=== PATIENT | female | born 1930 | race Caucasian/White ===

== ENCOUNTER 2018-07-13 08:58 | Day surgery (SDC) | payer MEDICARE ==
[2018-07-13] VITALS (16 sets, daily range): BP systolic 112–154; BP diastolic 56–66
[~2018-07-13] VITALS: Ht 172.7 cm; Wt 59.0 kg
[~2018-07-13 08:58] MED LIST: CHOL400C8 PO; COU1T PO; COU3T PO; CYCL-394 PO; DILT180C54 PO; FURO40TA4 PO; LANS15CA10 PO; LEVO50TA67 PO; LOSA25TA96 PO; POTA8TAB46 PO; PRAV40TA65 PO
[2018-07-13] MEDS ORDERED: sod bicarbonate 150mEq in D5W 1,150 ML IV ONE (09:20)
[2018-07-13] MEDS ORDERED: diphenhydrAMINE 25mg capsule PO PRN (09:20)
[2018-07-13] MEDS ORDERED: GABA-532 PO (09:31)
[2018-07-13] MEDS ORDERED: HYDR-3972 PO (09:31)
[2018-07-13] MEDS ORDERED: DILT180C10 PO (09:34)
[2018-07-13] MEDS ORDERED: normal saline 1000ml 1,000 ML IV SCH (10:05)
[2018-07-13 10:17] LABS: ALBUMIN 3.9 G/DL (3.4-5.0); ANION GAP 10 (8-16); BLOOD UREA NITROGEN 26 MG/DL (7-18); BUN/CREATININE RATIO 22.2 (6.6-38.0); CALCIUM 9.3 MG/DL (8.5-10.1); CHLORIDE 107 MMOL/L (99-107); CREATININE 1.17 MG/DL (0.40-0.90); GLUCOSE 90 MG/DL (70-104); MAGNESIUM 2.7 MG/DL (1.5-2.4); POTASSIUM 4.4 MMOL/L (3.5-5.1); SODIUM 142 MMOL/L (135-145); TOTAL CARBON DIOXIDE 25.4 MMOL/L (24-32); eGFR 44 ML/MIN
[2018-07-13 10:23] LABS: EOSINOPHILS % (AUTO) 0.4 % (0-6); HEMATOCRIT 28.6 % (35.0-45.0); HEMOGLOBIN 9.3 g/dl (12.0-16.0); LYMPHOCYTES # (AUTO) 0.6 X10'3 (1.1-4.8); LYMPHOCYTES % (AUTO) 27.1 % (21-51); MEAN CORPUSCULAR HEMOGLOBIN 36.5 PG (27.0-31.0); MEAN CORPUSCULAR HGB CONC 32.7 g/dL (33.0-36.5); MEAN CORPUSCULAR VOLUME 111.7 FL (78-98); MEAN PLATELET VOLUME 8.6 FL (7.4-10.4); MONOCYTES # (AUTO) 0.2 X10'3 (0-0.9); MONOCYTES % (AUTO) 8.4 % (2-12); NEUTROPHILS # (AUTO) 1.5 X10'3 (1.8-7.7); NEUTROPHILS % (AUTO) 63.1 % (42-75); PLATELET COUNT 98 X10'3 (140-440); RED BLOOD COUNT 2.56 X10'6 (4.20-5.60); RED CELL DISTRIBUTION WIDTH 17.7 % (11.5-14.5); WHITE BLOOD COUNT 2.3 X10'3 (4.5-11.0)
[2018-07-13 10:24] LABS: INR 1.5 INR; PROTHROMBIN TIME 15.3 SECONDS (9.0-12.0)
[2018-07-13] MEDS ORDERED: fentaNYL/PF 50MCG/1 ML 2ML syringe ONE ×2 (10:57→14:28)
[2018-07-13] MEDS ORDERED: LIDOcaine 1% (10mg/ml)w/preservative injection 20ml MDV ONE ×2 (10:57→14:00)
[2018-07-13] MEDS ORDERED: midazolam 2 mg/2 ml injection ONE ×3 (10:57→14:28)
[2018-07-13] MEDS ORDERED: iohexol 350 MG/ML 50ML vial IV ONE ×2 (10:58→12:06)
[2018-07-13] MEDS ORDERED: iohexol 350MG/ML 100ml bottle IV ONE (10:58)
[2018-07-13 11:13] LABS: ANISOCYTOSIS 1+; PLATELET ESTIMATE DECREASED; TOTAL CELLS COUNTED 100
[2018-07-13] MEDS ORDERED: heparin 1,000unit/ml 10ml vial 10 ML ONE ×2 (11:39→14:01)
[2018-07-13] MEDS ORDERED: adenosine 90 MG/30ml kit =/or below 120kg Cath Lab IV ONE (12:06)
[2018-07-13] MEDS ORDERED: iohexol 350 MG/1 ML 200ml bottle ONE (14:01)
[2018-07-13] MEDS ORDERED: heparin 1,000 UNITS/NS 500ml 500 ML ONE (14:32)
[2018-07-13] MEDS ORDERED: clopidogrel 300mg tablet ONE (14:50)
[2018-07-13] MEDS ORDERED: HYDROcodone/acetaminophen 10/325mg tab PO ONE (16:45)
== END 2018-07-13 18:10 | disposition home or self-care (01) ==
LOC: SSTAY O 08:58
PROVIDERS: ATTEND Internal Medicine Cardiovascular Disease
DX: I25.119 Atherosclerotic heart disease of native coronary artery with unspecified angina pectoris (principal); I27.20 Pulmonary hypertension, unspecified; Z79.899 Other long term (current) drug therapy
CPT/HCPCS: 36415; 80048; 83735; 85025; 85610; 93005; 93460; 93571; 99152; 99153; A6257; C1769; C1874; C1894; C9600; J0153; J1644; J2001; J2250; J3010; J7030; Q0163; Q9967; A4620; C1760

== ENCOUNTER 2018-12-12 04:43 | Inpatient (IN) | payer MEDICARE ==
[~2018-12-12] VITALS: Ht 170.2 cm; Wt 68.4 kg
[2018-12-12] VITALS (19 sets, daily range): BP systolic 119–158; BP diastolic 51–63
[~2018-12-12 04:43] MED LIST changes: -COU3T PO; -CYCL-394 PO; +DILT180C10 PO; -DILT180C54 PO; +GABA-532 PO; +HYDR-3972 PO; -LANS15CA10 PO; -LOSA25TA96 PO
[2018-12-12] MEDS ORDERED: atropine 0.1mg/ml 10ml syringe IV ONE (04:55)
--- NOTE | 2018-12-12 05:00 | NUR ---
DEFIB PATCHES ON PATIENT WELL
[2018-12-12] MEDS ORDERED: atropine 0.1mg/ml 10ml syringe IV STA (05:03)
[2018-12-12] MEDS ORDERED: normal saline 1000ML IV soln IVB ONE (05:05)
[2018-12-12] MEDS ORDERED: atropine 1 MG/1 ML vial IM PRN (05:20)
[2018-12-12] MEDS ORDERED: atropine 1 MG/1 ML vial IV PRN (05:25)
[2018-12-12 05:34] LABS: BASOPHILS % (AUTO) 0.3 % (0-1); EOSINOPHILS % (AUTO) 0.1 % (0-6); HEMATOCRIT 24.5 % (35.0-45.0); HEMOGLOBIN 8.1 g/dl (12.0-16.0); LYMPHOCYTES # (AUTO) 0.3 X10'3 (1.1-4.8); LYMPHOCYTES % (AUTO) 4.1 % (21-51); MEAN CORPUSCULAR HEMOGLOBIN 38.7 PG (27.0-31.0); MEAN CORPUSCULAR HGB CONC 33.2 g/dL (33.0-36.5); MEAN CORPUSCULAR VOLUME 116.4 FL (78-98); MEAN PLATELET VOLUME 8.3 FL (7.4-10.4); MONOCYTES % (AUTO) 0.1 % (2-12); NEUTROPHILS # (AUTO) 5.8 X10'3 (1.8-7.7); NEUTROPHILS % (AUTO) 95.4 % (42-75); RED BLOOD COUNT 2.11 X10'6 (4.20-5.60); RED CELL DISTRIBUTION WIDTH 26.7 % (11.5-14.5); WHITE BLOOD COUNT 6.1 X10'3 (4.5-11.0)
[2018-12-12] MEDS: atropine 0.1mg/ml 10ml syringe IV PRN ×2 (05:38→06:07)
[2018-12-12] MEDS ORDERED: ALLO100T PO (05:42)
--- NOTE | 2018-12-12 05:43 | NUR ---
A total of 2.5 mg of Atropine was given to the patient IV push. patient mantained a HR of low 60s.
--- NOTE | 2018-12-12 05:45 | NUR ---
FAMILY AT THE BEDSIDE
[2018-12-12 06:01] LABS: PLATELET COUNT 39 X10'3 (140-440)
[2018-12-12] MEDS ORDERED: CALC500T PO (06:01)
[2018-12-12] MEDS ORDERED: CYAN-51 PO (06:01)
[2018-12-12] MEDS ORDERED: FERR325T28 PO (06:01)
[2018-12-12] MEDS ORDERED: CLOP75TA35 PO (06:01)
[2018-12-12] MEDS ORDERED: ASPI-611 PO (06:01)
[2018-12-12 06:09] LABS: ANISOCYTOSIS 3+; NUCLEATED RED BLOOD CELLS 2 /100WBC (0-0); PLATELET ESTIMATE DECREASED; TOTAL CELLS COUNTED 100
[2018-12-12 06:10] LABS: HYPOCHROMASIA 1+
[2018-12-12] MEDS: DOPamine 400mg/D5W 250ml 250 ML IV SCH ×2 (06:15→07:32)
[2018-12-12 06:25] LABS: ALANINE AMINOTRANSFERASE 257 U/L (12-78); ALBUMIN 2.9 G/DL (3.4-5.0); ALBUMIN/GLOBULIN RATIO 0.9 (1.1-1.5); ALKALINE PHOSPHATASE 109 IU/L (46-116); ANION GAP 11 (8-16); ASPARTATE AMINO TRANSFERASE 460 U/L (10-37); BILIRUBIN,TOTAL 1.5 MG/DL (0.1-1.0); BLOOD UREA NITROGEN 38 MG/DL (7-18); BUN/CREATININE RATIO 19.2 (6.6-38.0); CALCIUM 8.4 MG/DL (8.5-10.1); CHLORIDE 103 MMOL/L (99-107); CREATININE 1.98 MG/DL (0.40-0.90); GLUCOSE 121 MG/DL (70-104); MAGNESIUM 2.3 MG/DL (1.5-2.4); PARTIAL THROMBOPLASTIN TIME 39 SECONDS (22-32); PHOSPHORUS 4.2 MG/DL (2.3-4.5); SODIUM 135 MMOL/L (135-145); TOTAL PROTEIN 6.3 G/DL (6.4-8.2); eGFR 24 ML/MIN
[2018-12-12 06:28] LABS: POTASSIUM 6.9 MMOL/L (3.5-5.1)
[2018-12-12] MEDS ORDERED: dextrose 50%-water 50ml dispensing syringe IV ONE (06:30)
[2018-12-12] MEDS ORDERED: calcium chloride inj. 1,000 MG in normal saline 100ml IV soln 90 ML IV ONE (06:30)
[2018-12-12] MEDS ORDERED: insulin regular, human 10 units/0.1 ml syringe IV ONE (06:30)
[2018-12-12] MEDS ORDERED: sodium polystyrene sulfonate 15gm/60ml oral suspension PO ONE (06:30)
[2018-12-12] MEDS ORDERED: LIDOcaine/epinephrine TOPICAL 5 ML BTL TOP ONE (07:05)
--- NOTE | 2018-12-12 07:15 | NUR ---
TAMMY DC'Callie PER RENEE ESTRELLA.
[2018-12-12] MEDS ORDERED: docusate sod 100mg capsule PO PRN (07:40)
[2018-12-12] MEDS ORDERED: ondansetron/PF 4mg/2ml inj IV PRN (07:40)
[2018-12-12] MEDS ORDERED: mag hydrox/Alum hydrox/simeth 30ml oral suspension PO PRN (07:40)
[2018-12-12] MEDS ORDERED: etomidate 2mg/ml inj. ONE (08:00)
--- NOTE | 2018-12-12 08:05 | NUR ---
MEDS HELD AT THIS TIME PT NAUSEATED FROM PRIOR MED LACTULOSE ADMINISITERED
--- NOTE | 2018-12-12 08:45 | NUR ---
DR. DENNISON CALLLED AND UPDATED ON PT VSs TRENDS AND THAT PTS HR STARTING TO SHONA BACK DOWN.
--- NOTE | 2018-12-12 08:54 | NUR ---
DR. DENNISON SPEAKING WITH SOCIAL PROBLEMS SPECIALIST REGARDING HIGHER LEVEL OF CARE, RECEIVED VO TO START RESTART DOPAMINE DRIP TILL FURTHER ORDERS FROM SOCIAL PROBLEMS SPECIALIST
--- NOTE | 2018-12-12 09:12 | NUR ---
PT SEEN BY PA ENVIRONMENTAL SERVICES TECHNICIAN RADHA. PT TO HAVE ABG, NOT TO START DOPAMINE AND NOTIFY PA IF HR GOES BELOW 45 BPM AND SUSTAINS.
[2018-12-12] MEDS ORDERED: cefepime 1GM in D5W 50mL 50 ML IV SCH (09:20)
[2018-12-12 09:23] LABS: ALANINE AMINOTRANSFERASE 232 U/L (12-78); ALBUMIN 2.8 G/DL (3.4-5.0); ALBUMIN/GLOBULIN RATIO 0.9 (1.1-1.5); ALKALINE PHOSPHATASE 105 IU/L (46-116); ANION GAP 9 (8-16); ASPARTATE AMINO TRANSFERASE 379 U/L (10-37); BILIRUBIN,TOTAL 0.8 MG/DL (0.1-1.0); BLOOD UREA NITROGEN 39 MG/DL (7-18); BUN/CREATININE RATIO 21.3 (6.6-38.0); CALCIUM 9.3 MG/DL (8.5-10.1); CHLORIDE 105 MMOL/L (99-107); CREATININE 1.83 MG/DL (0.40-0.90); GLUCOSE 140 MG/DL (70-104); POTASSIUM 5.8 MMOL/L (3.5-5.1); SODIUM 135 MMOL/L (135-145); TOTAL CARBON DIOXIDE 21.2 MMOL/L (24-32); eGFR 26 ML/MIN
[2018-12-12 09:25] LABS: BASOPHILS % (AUTO) 0.2 % (0-1); EOSINOPHILS % (AUTO) 0.1 % (0-6); LYMPHOCYTES # (AUTO) 0.3 X10'3 (1.1-4.8); LYMPHOCYTES % (AUTO) 5.3 % (21-51); MEAN CORPUSCULAR HEMOGLOBIN 38.1 PG (27.0-31.0); MEAN CORPUSCULAR HGB CONC 33.3 g/dL (33.0-36.5); MEAN CORPUSCULAR VOLUME 114.5 FL (78-98); MEAN PLATELET VOLUME 8.3 FL (7.4-10.4); MONOCYTES # (AUTO) 0.2 X10'3 (0-0.9); MONOCYTES % (AUTO) 3.6 % (2-12); NEUTROPHILS # (AUTO) 4.6 X10'3 (1.8-7.7); NEUTROPHILS % (AUTO) 90.8 % (42-75); RED BLOOD COUNT 1.84 X10'6 (4.20-5.60); RED CELL DISTRIBUTION WIDTH 27.5 % (11.5-14.5); WHITE BLOOD COUNT 5.1 X10'3 (4.5-11.0)
[2018-12-12 09:31] LABS: ABG BASE EXCESS -5.4 mmol/L (-2.0-3.0); ABG HCO3 19.3 mmol/L (22.0-26.0); ABG OXYGEN SATURATION 96.4 % (95-98); ABG PCO2 (T) 34.1 mmHg (35.0-45.0); ABG PH (T) 7.371 (7.350-7.450); ABG PO2 (T) 93.1 mmHg (83-108); ALLEN'S TEST Positive; FLOW 4 L/min; FO2Hb 95.4 % (94-100); TOTAL HEMOGLOBIN 7.5 G/dl (12.0-16.0)
--- NOTE | 2018-12-12 09:35 | NUR ---
PT SEEN BY DR. SCHMITT, PT TO HAVE DOPAMINE GTT RESTARTED PT HR NOW 47.
[2018-12-12] MEDS ORDERED: sodium bicarbonate (8.4%) 1 mEq/ml syringe IV ONE (09:40)
[2018-12-12] MEDS ORDERED: glucagon, human recombinant 20 MG in dextrose 5%-water 180 ML IV SCH ×2 (09:40)
[2018-12-12] MEDS ORDERED: albuterol 2.5 mg/0.5ml nebule NEB STA (09:40)
[2018-12-12] MEDS ORDERED: vancomycin/NS 1 GM ADD-VANTAGE 250 ML IV ONE (09:40)
[2018-12-12] MEDS: ferrous sulfate 325mg tablet PO SCH (10:00)
--- NOTE | 2018-12-12 10:00 | NUR ---
pt arrived to unit, transfered to bed, intubated at [address] Penn without problems, central line insertion attempted to right groin, unsuccessfully, pressure held to sitex 10 mins and pressure drsg applied, zero hematoma noted multiple family members at bedside and updated on plan of care, and patients status, questions answered, support given. dopamine infusing via port a cath, cxr done aparicio inserted without problems
[2018-12-12] MEDS ORDERED: fentaNYL/PF 50MCG/1 ML 2ML syringe ONE (10:12)
[2018-12-12] MEDS ORDERED: midazolam 2 mg/2 ml injection ONE (10:12)
[2018-12-12 10:25] LABS: PLATELET COUNT 39 X10'3 (140-440)
[2018-12-12 10:26] LABS: ABG BASE EXCESS -5.9 mmol/L (-2.0-3.0); ABG HCO3 18.8 mmol/L (22.0-26.0); ABG OXYGEN SATURATION 92.5 % (95-98); ABG PCO2 (T) 33.6 mmHg (35.0-45.0); ABG PH (T) 7.365 (7.350-7.450); ABG PO2 (T) 70.3 mmHg (83-108); FCOHb 0.9 % (0.5-1.5); FMetHb 0.1 % (0.3-1.12); FO2Hb 91.6 % (94-100); MINUTE VOLUME 8 L/min; PEEP 5 cm H2O; RESPIRATORY RATE 16 b/min; RESPIRATORY RATE (OBSERVED) 18 b/min; TIDAL VOLUME 350 mL; TOTAL HEMOGLOBIN 8.5 G/dl (12.0-16.0)
[2018-12-12] MEDS ORDERED: sodium bicarbonate (8.4%) 1 mEq/ml syringe ONE (10:52)
[2018-12-12] MEDS ORDERED: MIDAZolam inj 50 MG in normal saline 50ml IV soln 40 ML IV SCH (11:45)
[2018-12-12] MEDS ORDERED: albuterol 2.5 MG/3 ML nebule NEB ONE (11:55)
[2018-12-12] MEDS ORDERED: MIDAZOLAM IV SCH ×2 (12:02)
[2018-12-12] MEDS ORDERED: NORMAL SALINE IV SCH ×2 (12:02)
[2018-12-12] MEDS: dextrose 5%-water 1,000 ML IV SCH ×2 (12:20→19:40)
[2018-12-12 12:27] LABS: CLARITY,URINE SLIGHTLY CLOUDY (Clear); COLOR,URINE YELLOW (Yellow); GLUCOSE, URINE NEGATIVE (Neg); KETONES,URINE NEGATIVE (Neg); LEUKOCYTE ESTERASE ,URINE NEGATIVE (Neg); NITRITES, URINE NEGATIVE (Neg); OCCULT BLOOD,URINE TRACE-INTACT (Neg); PROTEIN,URINE 30 mg/dl (Neg)
[2018-12-12] MEDS: levoTHYROXINE sod inj. 100mcg/5 ml vial IV SCH (12:31)
[2018-12-12 12:38] LABS: SQUAMOUS EPITHELIAL CELL,UR FEW /LPF (FEW); UA COLLECTION TYPE NON-SPECIFIED
[2018-12-12 12:39] LABS: BACTERIA,URINE FEW /HPF (Neg); HYALINE CASTS 0-3 /LPF (NEGATIVE); RBC,URINE 0-2 /HPF (0-2); WBC,URINE 0-4 /HPF (0-4)
[2018-12-12 12:40] LABS: AMORPHOUS URATES 2+
[2018-12-12] MEDS: FENTANYL-0.9 % NACL/PF 100 ML IV PRN (12:59)
[2018-12-12] MEDS ORDERED: phytonadione inj. 2 MG in normal saline 100ml IV soln 99.8 ML IV ONE (14:50)
[2018-12-12] MEDS ORDERED: acetaminophen 120MG suppository, rectal RC PRN (16:45)
[2018-12-12] MEDS ORDERED: acetaminophen 325mg/10.15ml oral unit dose solution OGT PRN ×2 (16:45)
[2018-12-12] MEDS: acetaminophen 650mg rectal suppository RC PRN (17:37)
--- NOTE | 2018-12-12 18:20 | NUR ---
Patient in room ICU 2038. I have received report and had the opportunity to ask questions and assume patient care.
[2018-12-12 18:24] LABS: ALANINE AMINOTRANSFERASE 206 U/L (12-78); ALBUMIN/GLOBULIN RATIO 0.9 (1.1-1.5); ALKALINE PHOSPHATASE 108 IU/L (46-116); ANION GAP 10 (8-16); ASPARTATE AMINO TRANSFERASE 268 U/L (10-37); BILIRUBIN,TOTAL 0.9 MG/DL (0.1-1.0); BLOOD UREA NITROGEN 34 MG/DL (7-18); BUN/CREATININE RATIO 22.2 (6.6-38.0); CALCIUM 9.1 MG/DL (8.5-10.1); CHLORIDE 106 MMOL/L (99-107); CREATININE 1.53 MG/DL (0.40-0.90); GLUCOSE 127 MG/DL (70-104); POTASSIUM 4.4 MMOL/L (3.5-5.1); SODIUM 141 MMOL/L (135-145); TOTAL CARBON DIOXIDE 25.1 MMOL/L (24-32); TOTAL PROTEIN 6.3 G/DL (6.4-8.2); eGFR 32 ML/MIN
--- NOTE | 2018-12-12 20:00 | NUR ---
pt is intubated and sedated. vital signs are stable. no s/s of distress or change in condition noted. will continue to monitor
[2018-12-12] MEDS: cefepime 2g/NS 100ml ADVANTAGE 100 ML IV SCH (20:16)
[2018-12-12] MEDS ORDERED: vancomycin/NS 1 GM ADD-VANTAGE 250 ML IV SCH (22:00)
[2018-12-13] VITALS (26 sets, daily range): BP systolic 87–140; BP diastolic 41–72
--- NOTE | 2018-12-13 | NUR ---
pt is intubated and sedated. vital signs are stable. no s/s of distress or change in condition noted. will continue to monitor
[2018-12-13] MEDS: dextrose 5%-water 1,000 ML IV SCH (01:36)
[2018-12-13 03:10] LABS: ABG BASE EXCESS -0.1 mmol/L (-2.0-3.0); ABG HCO3 23.7 mmol/L (22.0-26.0); ABG OXYGEN SATURATION 92.5 % (95-98); ABG PCO2 (T) 33.5 mmHg (35.0-45.0); ABG PH (T) 7.464 (7.350-7.450); ABG PO2 (T) 61.5 mmHg (83-108); ALLEN'S TEST Positive; FCOHb 0.3 % (0.5-1.5); FMetHb 0.4 % (0.3-1.12); FO2Hb 91.9 % (94-100); MINUTE VOLUME 7 L/min; PEEP 5 cm H2O; RESPIRATORY RATE 16 b/min; RESPIRATORY RATE (OBSERVED) 17 b/min; TIDAL VOLUME 400 mL; TOTAL HEMOGLOBIN 8.5 G/dl (12.0-16.0)
--- NOTE | 2018-12-13 03:30 | NUR ---
pt is intubated and sedated. vital signs are stable. no s/s of distress or change in condition noted. will continue to monitor
[2018-12-13] MEDS ORDERED: vancomycin/NS 1 GM ADD-VANTAGE 250 ML IV SCH (04:00)
[2018-12-13 06:07] LABS: ALANINE AMINOTRANSFERASE 148 U/L (12-78); ALBUMIN 2.2 G/DL (3.4-5.0); ALBUMIN/GLOBULIN RATIO 0.8 (1.1-1.5); ALKALINE PHOSPHATASE 80 IU/L (46-116); ANION GAP 5 (8-16); ASPARTATE AMINO TRANSFERASE 137 U/L (10-37); BILIRUBIN,TOTAL 0.9 MG/DL (0.1-1.0); BLOOD UREA NITROGEN 22 MG/DL (7-18); BUN/CREATININE RATIO 23.9 (6.6-38.0); CALCIUM 8.2 MG/DL (8.5-10.1); CHLORIDE 107 MMOL/L (99-107); CREATININE 0.92 MG/DL (0.40-0.90); GLUCOSE 99 MG/DL (70-104); POTASSIUM 3.2 MMOL/L (3.5-5.1); SODIUM 139 MMOL/L (135-145); TOTAL CARBON DIOXIDE 26.9 MMOL/L (24-32); TOTAL PROTEIN 5.1 G/DL (6.4-8.2); eGFR 58 ML/MIN
[2018-12-13 06:18] LABS: BASOPHILS % (AUTO) 0.1 % (0-1); EOSINOPHILS % (AUTO) 0.3 % (0-6); HEMATOCRIT 23.7 % (35.0-45.0); LYMPHOCYTES # (AUTO) 0.2 X10'3 (1.1-4.8); LYMPHOCYTES % (AUTO) 6.2 % (21-51); MEAN CORPUSCULAR HGB CONC 33.7 g/dL (33.0-36.5); MEAN CORPUSCULAR VOLUME 106.8 FL (78-98); MONOCYTES % (AUTO) 0.2 % (2-12); NEUTROPHILS # (AUTO) 3.2 X10'3 (1.8-7.7); NEUTROPHILS % (AUTO) 93.2 % (42-75); RED BLOOD COUNT 2.22 X10'6 (4.20-5.60); RED CELL DISTRIBUTION WIDTH 27.6 % (11.5-14.5); WHITE BLOOD COUNT 3.4 X10'3 (4.5-11.0)
--- NOTE | 2018-12-13 06:18 | NUR ---
Problems reprioritized. Patient report given, questions answered & plan of care reviewed
[2018-12-13 06:21] LABS: PLATELET COUNT 43 X10'3 (140-440)
[2018-12-13 06:54] LABS: ANISOCYTOSIS 3+; NUCLEATED RED BLOOD CELLS 1 /100WBC (0-0); PLATELET ESTIMATE DECREASED; TOTAL CELLS COUNTED 100
[2018-12-13 06:55] LABS: HYPOCHROMASIA 1+; POIKILOCYTOSIS 1+; POLYCHROMASIA 1+
[2018-12-13] MEDS ORDERED: cyanocobalamin 500mcg tablet PO SCH (08:00)
[2018-12-13] MEDS: ferrous sulfate 325mg tablet PO SCH (08:31)
[2018-12-13] MEDS: levoTHYROXINE sod inj. 100mcg/5 ml vial IV SCH (08:31)
[2018-12-13] MEDS: cefepime 2g/NS 100ml ADVANTAGE 100 ML IV SCH (08:33)
[2018-12-13 10:15] LABS: MAGNESIUM 1.9 MG/DL (1.5-2.4); PHOSPHORUS 2.4 MG/DL (2.3-4.5)
--- NOTE | 2018-12-13 10:27 | NUR ---
Initial: Pt intubated admit w/ RLL PNA now in ARDS per MD note. 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 MCV 106.8 receiving B12 and iron. OG in place; per RN MD wants TF to start at 30ml/hr but does not want official RD consult for recs. RD notified RN Vital AF optimal trickle formula pending MD verification. Dietary notified regarding TF but pt diet order must reflect as well in order to send TF which RD d/w RN. TF recs below; current wt pt stated but best option to calculate recs at this time. Misbah 12 w/ skin intact. Will monitor for TF tolerance; recs below for once official nutrition consult placed. Rec: 1. OGTF per MD at 30ml/hr; rec Vital AF at 30ml/hr 2. IF OK per MD; advance TF 20ml Q8 as tolerated to Vital AF at 60ml/hr goal; to provide 1440ml fluid, 1728kcals, ml free water, and 108g protein. 3. additional water flush per airport clerk 4. prealbumin Q /, daily wts 5. monitor for signs of refeeding syndrome in heavily catabolic state Addendum: 12/13/18 at [address] Amended: Links added. Addendum: 12/14/18 at [address] Initial: Pt intubated admit w/ RLL PNA now in ARDS per MD note. 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 MCV 106.8 receiving B12 and iron. OG in place; pending TF consult. RD notified RN Vital AF optimal trickle formula pending MD verification. Dietary notified regarding TF but pt diet order must reflect as well in order to send TF which RD d/w RN. TF recs below; current wt pt stated but best option to calculate recs at this time. Misbah 12 w/ skin intact. Will monitor for TF tolerance; recs below for once official nutrition consult placed. Rec: 1. OGTF per MD at 30ml/hr; rec Vital AF at 30ml/hr 2. IF OK per MD; advance TF 20ml Q8 as tolerated to Vital AF at 60ml/hr goal; to provide 1440ml fluid, 1728kcals, ml free water, and 108g protein. 3. additional water flush per airport clerk 4. prealbumin Q /, daily wts 5. monitor for signs of refeeding syndrome in heavily catabolic state
[2018-12-13] MEDS: acetaminophen 650mg rectal suppository RC PRN (10:52)
[2018-12-13] MEDS ORDERED: Neutra Phos packet PO PRN (11:30)
[2018-12-13] MEDS ORDERED: potassium Cl 20 mEq SR tablet PO PRN ×2 (11:30)
[2018-12-13] MEDS: K and/or MAG REPLACEMENT MC SCH (11:30)
[2018-12-13] MEDS ORDERED: sodium phosphate inj. 30 MMOL in dextrose 5%-water 250 ML IV PRN (11:30)
[2018-12-13] MEDS ORDERED: sodium phosphate inj. 15 MMOL in dextrose 5%-water 150 ML IV PRN (11:30)
[2018-12-13] MEDS: levoFLOXACIN-Levaquin 500mg/D5 100 ML IV SCH (12:41)
[2018-12-13] MEDS: CefTRIAXone 2gm/D5W 50ml 50 ML IV SCH (12:42)
[2018-12-13] MEDS: DOPamine 400mg/D5W 250ml 250 ML IV SCH (12:42)
[2018-12-13] MEDS ORDERED: docusate sodium 100mg/10ml UD cup OGT PRN (13:56)
[2018-12-13] MEDS ORDERED: mag hydrox/Alum hydrox/simeth 30ml oral suspension OGT PRN (13:57)
[2018-12-13] MEDS ORDERED: Neutra Phos packet OGT PRN (13:58)
[2018-12-13] MEDS ORDERED: potassium Cl 20 mEq SR tablet OGT PRN (13:59)
[2018-12-13] MEDS: FENTANYL-0.9 % NACL/PF 100 ML IV PRN (14:58)
[2018-12-13 17:20] LABS: ABG BASE EXCESS 0.8 mmol/L (-2.0-3.0); ABG HCO3 22.6 mmol/L (22.0-26.0); ABG OXYGEN SATURATION 97.3 % (95-98); ABG PCO2 (T) 26.7 mmHg (35.0-45.0); ABG PH (T) 7.546 (7.350-7.450); ABG PO2 (T) 91.9 mmHg (83-108); ALLEN'S TEST Positive; FCOHb 0.3 % (0.5-1.5); FMetHb 0.1 % (0.3-1.12); FO2Hb 96.9 % (94-100); MINUTE VOLUME 11 L/min; PEEP 8 cm H2O; RESPIRATORY RATE 20 b/min; RESPIRATORY RATE (OBSERVED) 20 b/min; TIDAL VOLUME 475 mL; TOTAL HEMOGLOBIN 9.6 G/dl (12.0-16.0)
[2018-12-13] MEDS: potassium Cl 20 mEq SR tablet OGT PRN ×2 (17:47→22:25)
--- NOTE | 2018-12-13 18:47 | NUR ---
Patient in room ICU 2038. I have received report from Elva ALVARADO and had the opportunity to ask questions and assume patient care. Patient resting in bed, intubated and lightly sedated. Saturation at 99% on 40% FIO2 and on AC/VC mode with PEEP of 8, breathing at set rate of 14 breaths/min. HR in low 70s in atrial fibrillation with dopamine off at this time. Patient easily arousable to name and touch, following all commands and nodding yes/no appropriately to questions. Will continue to monitor urine.
[2018-12-13] MEDS ORDERED: HYDR-4353 PO (19:36)
[2018-12-13] MEDS: midazolam 100mg in NS 100ml 100 ML IV SCH (20:44)
[2018-12-13] MEDS ORDERED: VANCOMYCIN LEVEL IV ONE (21:30)
--- NOTE | 2018-12-13 22:12 | NUR ---
Problems reprioritized. Patient report given, questions answered & plan of care reviewed with Sylvia ALVARADO.
[2018-12-14] VITALS (28 sets, daily range): BP systolic 101–130; BP diastolic 43–73
[2018-12-14] MEDS: potassium Cl 20 mEq SR tablet OGT PRN (02:13)
[2018-12-14] MEDS ORDERED: VANCOMYCIN LEVEL IV ONE (03:30)
[2018-12-14 03:51] LABS: ABG BASE EXCESS -0.9 mmol/L (-2.0-3.0); ABG HCO3 22.8 mmol/L (22.0-26.0); ABG OXYGEN SATURATION 92.7 % (95-98); ABG PCO2 (T) 34.2 mmHg (35.0-45.0); ABG PH (T) 7.442 (7.350-7.450); ABG PO2 (T) 65.3 mmHg (83-108); ALLEN'S TEST Positive; FCOHb 0.2 % (0.5-1.5); FMetHb 0.1 % (0.3-1.12); FO2Hb 92.4 % (94-100); MINUTE VOLUME 7 L/min; PEEP 5 cm H2O; RESPIRATORY RATE 14 b/min; RESPIRATORY RATE (OBSERVED) 14 b/min; TIDAL VOLUME 475 mL; TOTAL HEMOGLOBIN 10.4 G/dl (12.0-16.0)
[2018-12-14 04:45] LABS: HEMOGLOBIN 9.7 g/dl (12.0-16.0); LYMPHOCYTES # (AUTO) 0.2 X10'3 (1.1-4.8); NEUTROPHILS # (AUTO) 2.8 X10'3 (1.8-7.7); NEUTROPHILS % (AUTO) 91.6 % (42-75); WHITE BLOOD COUNT 3.1 X10'3 (4.5-11.0)
[2018-12-14 04:47] LABS: BASOPHILS % (AUTO) 0.4 % (0-1); EOSINOPHILS % (AUTO) 0.5 % (0-6); HEMATOCRIT 28.7 % (35.0-45.0); LYMPHOCYTES % (AUTO) 7.3 % (21-51); MEAN CORPUSCULAR HGB CONC 33.8 g/dL (33.0-36.5); MEAN CORPUSCULAR VOLUME 103.8 FL (78-98); MONOCYTES % (AUTO) 0.2 % (2-12); RED BLOOD COUNT 2.76 X10'6 (4.20-5.60); RED CELL DISTRIBUTION WIDTH 26.2 % (11.5-14.5)
[2018-12-14 04:50] LABS: PLATELET COUNT 47 X10'3 (140-440)
[2018-12-14 04:59] LABS: ALANINE AMINOTRANSFERASE 140 U/L (12-78); ALBUMIN/GLOBULIN RATIO 0.6 (1.1-1.5); ALKALINE PHOSPHATASE 84 IU/L (46-116); ANION GAP 7 (8-16); ASPARTATE AMINO TRANSFERASE 103 U/L (10-37); BILIRUBIN,TOTAL 0.7 MG/DL (0.1-1.0); BLOOD UREA NITROGEN 16 MG/DL (7-18); BUN/CREATININE RATIO 23.2 (6.6-38.0); CALCIUM 8.3 MG/DL (8.5-10.1); CHLORIDE 106 MMOL/L (99-107); CREATININE 0.69 MG/DL (0.40-0.90); GLUCOSE 107 MG/DL (70-104); MAGNESIUM 1.8 MG/DL (1.5-2.4); PHOSPHORUS 2.3 MG/DL (2.3-4.5); POTASSIUM 3.5 MMOL/L (3.5-5.1); SODIUM 138 MMOL/L (135-145); TOTAL CARBON DIOXIDE 24.8 MMOL/L (24-32); TOTAL PROTEIN 5.2 G/DL (6.4-8.2); eGFR 80 ML/MIN
[2018-12-14 05:37] LABS: NUCLEATED RED BLOOD CELLS 2 /100WBC (0-0); PLATELET ESTIMATE DECREASED; TOTAL CELLS COUNTED 100
[2018-12-14 05:38] LABS: ANISOCYTOSIS 3+; TEAR DROP CELLS FEW
[2018-12-14 05:39] LABS: POLYCHROMASIA 1+
--- NOTE | 2018-12-14 06:30 | NUR ---
Patient in room ICU 2038. I have received report from overnight cashier RN and had the opportunity to ask questions and assume patient care.
--- NOTE | 2018-12-14 06:30 | NUR ---
Problems reprioritized. Patient report given, questions answered & plan of care reviewed with Elva ALVARADO.
[2018-12-14] MEDS: dextrose 5%-water 1,000 ML IV SCH (07:42)
[2018-12-14] MEDS: K and/or MAG REPLACEMENT MC SCH (08:00)
[2018-12-14] MEDS: levoFLOXACIN-Levaquin 500mg/D5 100 ML IV SCH (08:31)
[2018-12-14] MEDS: levoTHYROXINE sod inj. 100mcg/5 ml vial IV SCH (08:31)
[2018-12-14] MEDS: CefTRIAXone 2gm/D5W 50ml 50 ML IV SCH (08:31)
[2018-12-14] MEDS: cyanocobalamin 500mcg tablet OGT SCH (08:32)
[2018-12-14] MEDS: ferrous sulfate 300mg/5ml UD oral liquid OGT SCH (08:34)
[2018-12-14] MEDS ORDERED: CHOL10002 PO (10:40)
--- NOTE | 2018-12-14 11:44 | NUR ---
Reassessment: tube feeding currently at 50 ml/hr per OG tube, MD darden with increasing to goal rate, discussed at rounds. Recommend water flush 140 ml q 4 hours, d/w RN and OK with . Pt intubated and sedated. Pt intubated admit w/ RLL PNA now in ARDS per note. Pt hx myeloplastic syndrome and started chemotherapy recently. MCV 106.8 receiving B12 and iron. Rec: 1. Continuous tube feeding per OG tube with Vital AF at 60ml/hr goal; to provide 1440ml fluid, 1728kcals, ml free water, and 108g protein. 2. additional 140 ml water flush q 4 4. prealbumin Q /, daily wts Addendum: 12/14/18 at [address] Amended: Links added.
--- NOTE | 2018-12-14 12:00 | NUR ---
TO CT via bed, monitor, RN in attendance, and respiratory, pt on portable vent, tolerated well.
--- NOTE | 2018-12-14 15:00 | NUR ---
s/p bilateral ct insertion at bedside, pt tolerated procedure well no bleeding noted will cont to monitor.
[2018-12-14] MEDS: DOPamine 400mg/D5W 250ml 250 ML IV SCH (17:00)
[2018-12-14] MEDS: FENTANYL-0.9 % NACL/PF 100 ML IV PRN (17:02)
--- NOTE | 2018-12-14 18:30 | NUR ---
Patient in room ICU 2038. I have received report from Elva ALVARADO and had the opportunity to ask questions and assume patient care. Patient resting in bed with eyes closed, intubated and lightly sedated. Patient breathing at set rate of 14 breaths/min and saturating at 99% on 35% FIO2 on AC/VC mode. Patient in sinus rhythm with HR between high 60s/low 70s on 2mcg/min dopamine infusing through kristen-cath. BP at 110/53 via automatic cuff. Patient drowsy but easily arousable to name and tactile stimulus. Will continue to monitor patient.
--- NOTE | 2018-12-14 18:32 | NUR ---
Problems reprioritized. Patient report given, questions answered & plan of care reviewed with customer pricing manager RN.
[2018-12-15] VITALS (24 sets, daily range): BP systolic 101–131; BP diastolic 37–72
--- NOTE | 2018-12-15 00:41 | NUR ---
No changes in patient condition noted. Will continue to monitor patient.
[2018-12-15 03:46] LABS: ABG BASE EXCESS 5.3 mmol/L (-2.0-3.0); ABG HCO3 28.1 mmol/L (22.0-26.0); ABG OXYGEN SATURATION 97.9 % (95-98); ABG PCO2 (T) 35.1 mmHg (35.0-45.0); ABG PH (T) 7.523 (7.350-7.450); ABG PO2 (T) 108.4 mmHg (83-108); ALLEN'S TEST Positive; FCOHb 0.2 % (0.5-1.5); FMetHb 0.2 % (0.3-1.12); FO2Hb 97.5 % (94-100); MINUTE VOLUME 7 L/min; PATIENT TEMPERATURE 37.6; PEEP 5 cm H2O; RESPIRATORY RATE 14 b/min; RESPIRATORY RATE (OBSERVED) 14 b/min; TIDAL VOLUME 475 mL; TOTAL HEMOGLOBIN 10.1 G/dl (12.0-16.0)
[2018-12-15 04:52] LABS: WHITE BLOOD COUNT 2.7 X10'3 (4.5-11.0)
[2018-12-15 04:53] LABS: HEMATOCRIT 27.7 % (35.0-45.0); HEMOGLOBIN 9.5 g/dl (12.0-16.0); MEAN CORPUSCULAR HEMOGLOBIN 35.6 PG (27.0-31.0); MEAN CORPUSCULAR HGB CONC 34.5 g/dL (33.0-36.5); MEAN CORPUSCULAR VOLUME 103.2 FL (78-98); MEAN PLATELET VOLUME 8.2 FL (7.4-10.4); RED BLOOD COUNT 2.68 X10'6 (4.20-5.60); RED CELL DISTRIBUTION WIDTH 25.5 % (11.5-14.5)
[2018-12-15 05:17] LABS: ALANINE AMINOTRANSFERASE 127 U/L (12-78); ALBUMIN/GLOBULIN RATIO 0.6 (1.1-1.5); ALKALINE PHOSPHATASE 82 IU/L (46-116); ANION GAP 6 (8-16); ASPARTATE AMINO TRANSFERASE 90 U/L (10-37); BILIRUBIN,TOTAL 0.5 MG/DL (0.1-1.0); BLOOD UREA NITROGEN 15 MG/DL (7-18); BUN/CREATININE RATIO 24.6 (6.6-38.0); CALCIUM 8.5 MG/DL (8.5-10.1); CHLORIDE 105 MMOL/L (99-107); CREATININE 0.61 MG/DL (0.40-0.90); GLUCOSE 107 MG/DL (70-104); MAGNESIUM 1.8 MG/DL (1.5-2.4); PHOSPHORUS 3.1 MG/DL (2.3-4.5); SODIUM 137 MMOL/L (135-145); TOTAL CARBON DIOXIDE 25.7 MMOL/L (24-32); TOTAL PROTEIN 5.3 G/DL (6.4-8.2); eGFR > 90 ML/MIN
[2018-12-15 05:31] LABS: PLATELET COUNT 42 X10'3 (140-440)
[2018-12-15 05:33] LABS: ANISOCYTOSIS 3+; PLATELET ESTIMATE DECREASED; TOTAL CELLS COUNTED 100
[2018-12-15 05:34] LABS: POIKILOCYTOSIS FEW; TEAR DROP CELLS FEW
[2018-12-15 05:35] LABS: POLYCHROMASIA 1+
[2018-12-15 05:51] LABS: ELLIPTOCYTES FEW
--- NOTE | 2018-12-15 05:54 | NUR ---
Notified Hayes Vazquez NP regarding patient's critically low plt of 42. Informed him that patient has been having critically low platelets since admission with platelets last infused yesterday evening. No new orders received at this time.
--- NOTE | 2018-12-15 06:26 | NUR ---
Problems reprioritized. Patient report given, questions answered & plan of care reviewed with Cristin ALVARADO.
--- NOTE | 2018-12-15 06:38 | NUR ---
Patient in room ICU 2038. I have received report from JENNY Ames and had the opportunity to ask questions and assume patient care.
[2018-12-15] MEDS: levoTHYROXINE 25mcg tablet OGT SCH (07:29)
[2018-12-15] MEDS: levoFLOXACIN-Levaquin 500mg/D5 100 ML IV SCH (07:29)
[2018-12-15] MEDS: CefTRIAXone 2gm/D5W 50ml 50 ML IV SCH (07:30)
[2018-12-15] MEDS: aspirin 81mg tab.chew OGT SCH (07:30)
[2018-12-15] MEDS: ferrous sulfate 300mg/5ml UD oral liquid OGT SCH (07:30)
[2018-12-15] MEDS: pravastatin 40mg tablet OGT SCH (07:31)
[2018-12-15] MEDS: allopurinol 300 MG tablet OGT SCH (07:31)
[2018-12-15] MEDS: cyanocobalamin 500mcg tablet OGT SCH (07:31)
[2018-12-15] MEDS: vitamin D (cholecalciferol) 1,000 unit tablet PO SCH (07:31)
[2018-12-15] MEDS: calcium carbonate 500mg tablet OGT SCH ×2 (07:31→20:49)
[2018-12-15] MEDS: clopidogrel 75mg tablet OGT SCH (07:31)
[2018-12-15] MEDS: K and/or MAG REPLACEMENT MC SCH (08:00)
[2018-12-15] MEDS ORDERED: potassium chloride 8mEq ER tablet PO SCH (08:00)
[2018-12-15] MEDS ORDERED: normal saline 1000ml 1,000 ML IV ONE (11:05)
--- NOTE | 2018-12-15 11:45 | NUR ---
F/u: Pt MAP decreased to 55 this AM and also receiving dopamine. Per rubber roller grinder at rounds would like to continue feeding. Will monitor for TF tolerance given potential for intolerance and impaired GI integrity w/ low MAP. Addendum: 12/15/18 at [address] Amended: Links added.
[2018-12-15 13:06] LABS: LDH,BODY FLUID 98 U/L
[2018-12-15 13:07] LABS: TOTAL PROTEIN,BODY FLUID < 2.0 G/DL
[2018-12-15] MEDS: dextrose 5%-water 1,000 ML IV SCH (13:32)
[2018-12-15 13:59] LABS: LYMPHOCYTES,BODY FLUID 59 %; MONOCYTES,BODY FLUID 5 %; NEUTROPHILS,BODY FLUID 36 %
[2018-12-15 14:02] LABS: BF MESOTHELIAL CELLS MODERATE; BF RBC COUNT 620 /CU MM; BF WBC COUNT 68 /CU MM (0-1000); BFAPPEAR HAZY; BFCOLOR YELLOW; BFVOLUME 15 ML
[2018-12-15 14:32] LABS: BASOPHILS,BODY FLUID 1 %; LYMPHOCYTES,BODY FLUID 66 %; MONOCYTES,BODY FLUID 11 %; NEUTROPHILS,BODY FLUID 22 %
[2018-12-15 14:33] LABS: BF RBC COUNT 1275 /CU MM; BF WBC COUNT 260 /CU MM (0-1000); BFAPPEAR HAZY; BFCOLOR YELLOW; BFVOLUME 10 ML
[2018-12-15 14:37] LABS: LDH,BODY FLUID 395 U/L
--- NOTE | 2018-12-15 16:46 | NUR ---
Family meeting at [address] Penn. Notified family
--- NOTE | 2018-12-15 17:40 | NUR ---
Pt went into Afib RVR for 15 min during ET suctioning. RN held dopamine drip, gave fentanyl bolus of 25 mcg. Pt's heart rate went down to 103 around 1730.
--- NOTE | 2018-12-15 18:25 | NUR ---
Problems reprioritized. Patient report given, questions answered & plan of care reviewed with JENNY Brady.
[2018-12-15] MEDS: enoxaparin 40mg/0.4ml syringe SQ SCH (20:49)
[2018-12-15] MEDS: enoxaparin 30mg/0.3ml syringe SUBCUT SCH (20:49)
[2018-12-15] MEDS: docusate sodium 100mg/10ml UD cup PO SCH (20:50)
[2018-12-15] MEDS: polyethylene glycol 3350 17gm powd pack PO SCH (20:50)
[2018-12-15] MEDS ORDERED: warfarin 3mg tablet PO SCH (21:00)
[2018-12-15] MEDS: FENTANYL-0.9 % NACL/PF 100 ML IV PRN (22:03)
[2018-12-16] VITALS (24 sets, daily range): BP systolic 123–166; BP diastolic 40–84
[2018-12-16 03:31] LABS: ABG BASE EXCESS 3.6 mmol/L (-2.0-3.0); ABG OXYGEN SATURATION 97.4 % (95-98); ABG PCO2 (T) 36.3 mmHg (35.0-45.0); ABG PO2 (T) 97.1 mmHg (83-108); ALLEN'S TEST Positive; FCOHb 0.3 % (0.5-1.5); FMetHb 0.1 % (0.3-1.12); MINUTE VOLUME 9 L/min; PEEP 5 cm H2O; RESPIRATORY RATE 12 b/min; RESPIRATORY RATE (OBSERVED) 17 b/min; TIDAL VOLUME 475 mL; TOTAL HEMOGLOBIN 9.5 G/dl (12.0-16.0)
[2018-12-16] MEDS: DOPamine 400mg/D5W 250ml 250 ML IV SCH ×2 (03:47→20:41)
[2018-12-16] MEDS: midazolam 100mg in NS 100ml 100 ML IV SCH (03:47)
[2018-12-16 04:59] LABS: HEMOGLOBIN 9.3 g/dl (12.0-16.0); LYMPHOCYTES # (AUTO) 0.4 X10'3 (1.1-4.8); MEAN CORPUSCULAR HEMOGLOBIN 35.8 PG (27.0-31.0); RED BLOOD COUNT 2.59 X10'6 (4.20-5.60); WHITE BLOOD COUNT 3.1 X10'3 (4.5-11.0)
[2018-12-16 05:02] LABS: BASOPHILS % (AUTO) 0.2 % (0-1); EOSINOPHILS % (AUTO) 0.4 % (0-6); LYMPHOCYTES % (AUTO) 12.5 % (21-51); MEAN CORPUSCULAR HGB CONC 34.3 g/dL (33.0-36.5); MEAN CORPUSCULAR VOLUME 104.2 FL (78-98); MEAN PLATELET VOLUME 8.4 FL (7.4-10.4); MONOCYTES # (AUTO) 0.1 X10'3 (0-0.9); MONOCYTES % (AUTO) 3.9 % (2-12); NEUTROPHILS # (AUTO) 2.6 X10'3 (1.8-7.7); RED CELL DISTRIBUTION WIDTH 25.2 % (11.5-14.5)
[2018-12-16 05:17] LABS: ALANINE AMINOTRANSFERASE 142 U/L (12-78); ALBUMIN 1.8 G/DL (3.4-5.0); ALBUMIN/GLOBULIN RATIO 0.5 (1.1-1.5); ALKALINE PHOSPHATASE 86 IU/L (46-116); ANION GAP 7 (8-16); ASPARTATE AMINO TRANSFERASE 123 U/L (10-37); BILIRUBIN,TOTAL 0.5 MG/DL (0.1-1.0); BLOOD UREA NITROGEN 17 MG/DL (7-18); BUN/CREATININE RATIO 27.9 (6.6-38.0); CALCIUM 8.6 MG/DL (8.5-10.1); CHLORIDE 103 MMOL/L (99-107); CREATININE 0.61 MG/DL (0.40-0.90); GLUCOSE 99 MG/DL (70-104); MAGNESIUM 1.9 MG/DL (1.5-2.4); PHOSPHORUS 3.2 MG/DL (2.3-4.5); POTASSIUM 4.1 MMOL/L (3.5-5.1); SODIUM 136 MMOL/L (135-145); TOTAL CARBON DIOXIDE 26.4 MMOL/L (24-32); TOTAL PROTEIN 5.2 G/DL (6.4-8.2); eGFR > 90 ML/MIN
[2018-12-16 05:22] LABS: PLATELET COUNT 40 X10'3 (140-440)
[2018-12-16 07:50] LABS: NUCLEATED RED BLOOD CELLS 2 /100WBC (0-0); TOTAL CELLS COUNTED 100
[2018-12-16 07:51] LABS: ANISOCYTOSIS 3+; PLATELET ESTIMATE DECREASED; SCHISTOCYTES FEW
[2018-12-16 07:52] LABS: POLYCHROMASIA FEW; TEAR DROP CELLS FEW
[2018-12-16] MEDS: clopidogrel 75mg tablet OGT SCH (07:52)
[2018-12-16] MEDS: allopurinol 300 MG tablet OGT SCH (07:52)
[2018-12-16] MEDS: pravastatin 40mg tablet OGT SCH (07:52)
[2018-12-16] MEDS: vitamin D (cholecalciferol) 1,000 unit tablet PO SCH (07:52)
[2018-12-16] MEDS: aspirin 81mg tab.chew OGT SCH (07:52)
[2018-12-16] MEDS: levoTHYROXINE 25mcg tablet OGT SCH (07:53)
[2018-12-16] MEDS: calcium carbonate 500mg tablet OGT SCH ×2 (07:53→20:00)
[2018-12-16] MEDS: cyanocobalamin 500mcg tablet OGT SCH (07:53)
[2018-12-16] MEDS: ferrous sulfate 300mg/5ml UD oral liquid OGT SCH (07:53)
[2018-12-16] MEDS: CefTRIAXone 2gm/D5W 50ml 50 ML IV SCH (07:54)
[2018-12-16] MEDS: levoFLOXACIN-Levaquin 500mg/D5 100 ML IV SCH (07:54)
[2018-12-16] MEDS: enoxaparin 30mg/0.3ml syringe SUBCUT SCH (07:57)
[2018-12-16] MEDS: enoxaparin 40mg/0.4ml syringe SQ SCH (07:57)
[2018-12-16] MEDS: K and/or MAG REPLACEMENT MC SCH (08:00)
[2018-12-16] MEDS: docusate sodium 100mg/10ml UD cup PO SCH ×2 (08:00→20:00)
[2018-12-16] MEDS ORDERED: bisacodyl 10mg suppository rectal RC PRN (10:35)
[2018-12-16] MEDS ORDERED: colchicine 0.6mg tablet PO ONE (11:10)
[2018-12-16] MEDS ORDERED: benzocaine/menthol oral lozeng 1 EACH BOX MM PRN (15:15)
[2018-12-16] MEDS ORDERED: racepinephrine 11.25mg/0.5ml nebule IH ONE (15:15)
[2018-12-16] MEDS: dextrose 5%-water 1,000 ML IV SCH (16:51)
--- NOTE | 2018-12-16 18:01 | NUR ---
Pt given racemic epi around 1700. HR sustained in 130s since then and increased to 150s about 1755. All other vitals stable. Left message for Dr. Penn, awaiting call back
--- NOTE | 2018-12-16 18:30 | NUR ---
Patient in room ICU 2038. I have received report from Cristin ALVARADO and had the opportunity to ask questions and assume patient care.
--- NOTE | 2018-12-16 18:30 | NUR ---
Pt is sitting up in [place] with a HR of 151-155. Asked her to bear down to see if it would affect her HR. She attempted to do so, and her HR increased to 160, eventually falling back to 151-[address] Penn has been paged, will update when he calls back in.
[2018-12-16] MEDS ORDERED: furosemide 10 MG/1 ML 10ml inj IV ONE (18:45)
[2018-12-16] MEDS ORDERED: metoclopramide 5 mg/ml inj IV ONE (18:45)
--- NOTE | 2018-12-16 18:50 | NUR ---
Reclined Pt's head of bed and her HR dropped back down to a rate of 131-135, as it has been since she was extubated earlier in the shift. Will continue to monitor.
--- NOTE | 2018-12-16 18:56 | NUR ---
Pt had Malone Catheter removed on Day shift, and had not yet urinated. Performed a bladder scan that showed 150ml in Bladder. Asked Pt if she felt the urge to urinate or have a BM, she said no. Will continue to monitor.
[2018-12-16] MEDS: polyethylene glycol 3350 17gm powd pack PO SCH (21:00)
[2018-12-16] MEDS: diltiazem 30mg tablet PO SCH (21:21)
[2018-12-17] VITALS (23 sets, daily range): BP systolic 96–158; BP diastolic 43–74
[2018-12-17] MEDS: LORazepam 2 mg/ml vial IV PRN ×2 (01:07→20:41)
--- NOTE | 2018-12-17 06:39 | NUR ---
Problems reprioritized. Patient report given, questions answered & plan of care reviewed with Lincoln ALVARADO.
[2018-12-17] MEDS: docusate sodium 100mg/10ml UD cup PO SCH ×2 (06:58→20:00)
[2018-12-17] MEDS ORDERED: acetaminophen 325mg tablet PO PRN ×2 (07:32→07:33)
[2018-12-17] MEDS ORDERED: acetaminophen 325mg tablet OGT PRN (07:32)
[2018-12-17] MEDS ORDERED: docusate sod 100mg capsule PO PRN (07:35)
[2018-12-17] MEDS ORDERED: mag hydrox/Alum hydrox/simeth 30ml oral suspension PO PRN (07:37)
[2018-12-17] MEDS ORDERED: Neutra Phos packet PO PRN (07:38)
[2018-12-17] MEDS ORDERED: potassium Cl 20 mEq SR tablet PO PRN ×2 (07:38→07:39)
[2018-12-17] MEDS: ferrous sulfate 325mg tablet PO SCH (08:00)
[2018-12-17] MEDS: diltiazem 30mg tablet PO SCH ×3 (08:00→21:00)
[2018-12-17] MEDS: calcium carbonate 500mg tablet PO SCH ×2 (08:00→20:00)
[2018-12-17] MEDS: colchicine 0.6mg tablet PO SCH (08:00)
[2018-12-17] MEDS: vitamin D (cholecalciferol) 1,000 unit tablet PO SCH (08:00)
[2018-12-17] MEDS: cyanocobalamin 500mcg tablet OGT SCH (08:00)
[2018-12-17] MEDS: pravastatin 40mg tablet PO SCH (08:00)
[2018-12-17] MEDS: K and/or MAG REPLACEMENT MC SCH (08:00)
[2018-12-17] MEDS: clopidogrel 75mg tablet PO SCH (08:00)
[2018-12-17] MEDS: allopurinol 300 MG tablet PO SCH (08:00)
[2018-12-17] MEDS: aspirin 81mg tab.chew PO SCH (08:00)
[2018-12-17 08:09] LABS: HEMOGLOBIN 9.1 g/dl (12.0-16.0); LYMPHOCYTES # (AUTO) 0.4 X10'3 (1.1-4.8); MEAN PLATELET VOLUME 8.7 FL (7.4-10.4)
[2018-12-17 08:11] LABS: BASOPHILS % (AUTO) 0.4 % (0-1); EOSINOPHILS % (AUTO) 0.2 % (0-6); HEMATOCRIT 26.4 % (35.0-45.0); LYMPHOCYTES % (AUTO) 7.9 % (21-51); MEAN CORPUSCULAR HEMOGLOBIN 35.6 PG (27.0-31.0); MEAN CORPUSCULAR HGB CONC 34.6 g/dL (33.0-36.5); MEAN CORPUSCULAR VOLUME 102.9 FL (78-98); MONOCYTES % (AUTO) 0.2 % (2-12); NEUTROPHILS # (AUTO) 4.9 X10'3 (1.8-7.7); NEUTROPHILS % (AUTO) 91.3 % (42-75); RED BLOOD COUNT 2.56 X10'6 (4.20-5.60); RED CELL DISTRIBUTION WIDTH 25.7 % (11.5-14.5); WHITE BLOOD COUNT 5.4 X10'3 (4.5-11.0)
[2018-12-17 08:22] LABS: PLATELET COUNT 48 X10'3 (140-440)
--- NOTE | 2018-12-17 08:22 | NUR ---
Per Radiologist, pneumothorax with chest tube noted to be increased from yesterday; will notify MD. Chest tube remains to suction. Critical Plt 48; improved from 40. Will continue to monitor.
[2018-12-17 08:44] LABS: ALANINE AMINOTRANSFERASE 187 U/L (12-78); ALBUMIN 2.1 G/DL (3.4-5.0); ALBUMIN/GLOBULIN RATIO 0.6 (1.1-1.5); ALKALINE PHOSPHATASE 103 IU/L (46-116); ANION GAP 5 (8-16); ASPARTATE AMINO TRANSFERASE 157 U/L (10-37); BILIRUBIN,TOTAL 0.6 MG/DL (0.1-1.0); BLOOD UREA NITROGEN 21 MG/DL (7-18); BUN/CREATININE RATIO 29.2 (6.6-38.0); CALCIUM 8.7 MG/DL (8.5-10.1); CHLORIDE 102 MMOL/L (99-107); CREATININE 0.72 MG/DL (0.40-0.90); GLUCOSE 116 MG/DL (70-104); POTASSIUM 4.1 MMOL/L (3.5-5.1); SODIUM 137 MMOL/L (135-145); TOTAL CARBON DIOXIDE 30.2 MMOL/L (24-32); TOTAL PROTEIN 5.8 G/DL (6.4-8.2); eGFR 77 ML/MIN
[2018-12-17] MEDS: CefTRIAXone 2gm/D5W 50ml 50 ML IV SCH (09:26)
[2018-12-17] MEDS: levoFLOXACIN-Levaquin 500mg/D5 100 ML IV SCH (09:29)
--- NOTE | 2018-12-17 10:27 | NUR ---
During rounds, notified about pneumothorax; orders to recheck x-ray at 1400 and to notify IR that the pneumo is not improving. Dr. Penn also notified that patient is NPO and unable to swallow; hold modified barium swallow and start TPN via Allison-cath. Okay to hold Plavix and potential Lovenox as patient's Plt count <70k.
[2018-12-17] MEDS ORDERED: magnesium 2GM in 50ml NS 50 ML IV PRN (11:05)
[2018-12-17] MEDS ORDERED: fat emulsion 20% IV 181.82 ML, MVI, adult No.4 with vit. K 4.55 ML, Trace element-5 inj... IV SCH ×4 (11:05)
[2018-12-17] MEDS ORDERED: magnesium Cl slow-release 64mg tablet PO PRN (11:05)
[2018-12-17] MEDS ORDERED: magnesium 4gm in 100ml NS 100 ML IV PRN (11:05)
[2018-12-17] MEDS ORDERED: Dextrose 10%-water IV solution 1,000 ML IV PRN (11:05)
[2018-12-17 11:37] LABS: TRIGLYCERIDES 54 MG/DL (20-135)
--- NOTE | 2018-12-17 11:37 | NUR ---
TPN Consult: Pt s/p extubation and failed BSS by ADVICE NURSE today. Pt already has central line in place and NG placement increases pt anxiety; MD requests TPN at this time. TPN not recommended at this time given functioning gut in order to maintain gut integrity and prevent potential for bacterial translocation. Pt first small BM since admit yesterday 12/16. Will monitor for TPN tolerance and repeat BSS results. Recs below. Rec: 1. Advance diet per ADVICE NURSE to regular 2. IF prolonged NPO per ADVICE NURSE; post-pyloric feedings to maintain GI integrity 3. TPN via central line per MD; using Clinimix E 5/15 at 80ml/hr goal; separate 108ml 20% intralipids to run Q12 hours daily at 9ml/hr. Initiate at 30ml/hr and if tolerated Q12 advance to goal. 4. In total; to provide 1920ml fluid, 96g AA, 288g DEX (2.93mg/kg/min), and 1199 total non-protein kcals 5. prealbumin Q /, daily wts Addendum: 12/17/18 at [address] Amended: Links added. Addendum: 12/17/18 at [address] TPN Consult: Pt s/p extubation and failed BSS by ADVICE NURSE today. Pt already has central line in place and NG placement increases pt anxiety; MD requests TPN at this time. TPN not recommended at this time given functioning gut in order to maintain gut integrity and prevent potential for bacterial translocation. Pt first small BM since admit yesterady. Will monitor for TPN tolerance and repeat BSS results. Recs below. Rec: 1. Advance diet per ADVICE NURSE to regular 2. IF prolonged NPO per ADVICE NURSE; post-pyloric feedings to maintain GI integrity 3. TPN via central line per MD; using Clinimix E 5/15 at 80ml/hr goal; separate 108ml 20% intralipids to run Q12 hours daily at 9ml/hr. Initiate at 30ml/hr and if tolerated Q12 advance to goal. 4. In total; to provide 1920ml fluid, 96g AA, 288g DEX (2.93mg/kg/min), and 1199 total non-protein kcals 5. prealbumin Q /, daily wts 6. routine bowel care
[2018-12-17] MEDS ORDERED: morphine 2 MG/ML inj. syringe IV PRN (11:45)
--- NOTE | 2018-12-17 11:48 | NUR ---
PRESSURE ULCER EDUCATION: DEFINITION: A pressure ulcer is an area of skin that breaks down when you stay in one position too long. The constant pressure against the skin reduces the blood flow to that area and the affected tissue dies. CAUSES: "Being bedridden or in a wheelchair "Fragile skin "Having a chronic condition, such as diabetes or vascular disease "Inability to move certain parts of your body without assistance "Older age "Incontinence of urine or stool SYMPTOMS: "A reddened area that DOES NOT turn white when pressed on - this can be the beginning of a pressure ulcer "A blister, deep sore or a crater - these can be advanced pressure ulcers FIRST AID: "Relieve the pressure on this area "Keep the area clean and dry "Call your primary doctor if you see any of the above symptoms "DO NOT massage the area "DO NOT use a donut shaped or ring shaped pillow- these actually interfere with the blood flow and cause complications PREVENTION: "Check for pressure ulcers everyday "Change position at least every two hours to relieve pressure "Use items that help relieve pressure- pillows, sheepskin, foam padding, and powders. "Keep skin clean and dry "Eat healthy well balanced meals "Exercise daily IF YOU SEE ANY OF THESE SYMPTOMS WHILE IN THE HOSPITAL - TELL YOUR NURSE IMMEDIATELY. IF YOU SEE ANY OF THESE SYMPTOMS WHILE AT HOME OR HAVE ANY QUESTIONS OR CONCERNS ABOUT PRESSURE ULCERS - CALL YOUR PRIMARY DOCTOR IMMEDIATELY. Addendum: 12/17/18 at 1149 by Eva Orta RN Amended: Links added.
[2018-12-17 11:50] LABS: ANISOCYTOSIS 3+; NUCLEATED RED BLOOD CELLS 1 /100WBC (0-0); PLATELET ESTIMATE DECREASED; TOTAL CELLS COUNTED 100
[2018-12-17] MEDS ORDERED: diltiazem 5mg/ml 5ml inj. IV PRN (11:50)
[2018-12-17 11:51] LABS: POLYCHROMASIA FEW
--- NOTE | 2018-12-17 15:15 | NUR ---
Radiologist noted increase in pneumothorax; Dr. Penn Addendum: 12/17/18 at 1735 by Lincoln Yates RN Dr. Penn notified. Will continue to monitor.
[2018-12-17] MEDS: morphine 2 MG/ML inj. syringe IV PRN ×2 (16:23→20:15)
--- NOTE | 2018-12-17 16:52 | NUR ---
Unable to start new PIV as current PIV is outdated. PICC nurse paged. Current PIV continues to work well. Will continue to monitor.
--- NOTE | 2018-12-17 18:36 | NUR ---
Problems reprioritized. Patient report given, questions answered & plan of care reviewed with Elva ALVARADO.
[2018-12-17] MEDS ORDERED: Trace element-5 inj. 0.5 ML in AA 5%/cal/electrolyte-TPN/D15W 1,000 ML IV SCH (21:00)
[2018-12-17] MEDS ORDERED: MVI, adult No.4 with vit. K 10 ML in normal saline 500ml IV soln 500 ML IV SCH ×2 (21:00)
[2018-12-17] MEDS ORDERED: fat emulsion IV bag 250 ML IV SCH (21:00)
[2018-12-17] MEDS: polyethylene glycol 3350 17gm powd pack PO SCH (21:00)
[2018-12-18] VITALS (24 sets, daily range): BP systolic 101–147; BP diastolic 44–85
[2018-12-18] MEDS: morphine 2 MG/ML inj. syringe IV PRN ×4 (00:21→23:28)
--- NOTE | 2018-12-18 06:00 | NUR ---
Patient in room ICU 2038. I have received report from JENNY Stevenson and had the opportunity to ask questions and assume patient care.
[2018-12-18 06:39] LABS: ALANINE AMINOTRANSFERASE 170 U/L (12-78); ALBUMIN/GLOBULIN RATIO 0.5 (1.1-1.5); ALKALINE PHOSPHATASE 96 IU/L (46-116); ANION GAP 6 (8-16); ASPARTATE AMINO TRANSFERASE 117 U/L (10-37); BILIRUBIN,TOTAL 0.4 MG/DL (0.1-1.0); BLOOD UREA NITROGEN 18 MG/DL (7-18); BUN/CREATININE RATIO 33.3 (6.6-38.0); CALCIUM 9.1 MG/DL (8.5-10.1); CHLORIDE 104 MMOL/L (99-107); CREATININE 0.54 MG/DL (0.40-0.90); GLUCOSE 108 MG/DL (70-104); MAGNESIUM 2.3 MG/DL (1.5-2.4); SODIUM 139 MMOL/L (135-145); TOTAL CARBON DIOXIDE 29.2 MMOL/L (24-32); TOTAL PROTEIN 5.7 G/DL (6.4-8.2); eGFR > 90 ML/MIN
[2018-12-18] MEDS: levoFLOXACIN-Levaquin 500mg/D5 100 ML IV SCH (07:46)
[2018-12-18] MEDS: pravastatin 40mg tablet PO SCH (08:00)
[2018-12-18] MEDS: vitamin D (cholecalciferol) 1,000 unit tablet PO SCH (08:00)
[2018-12-18] MEDS: docusate sodium 100mg/10ml UD cup PO SCH ×2 (08:00→19:30)
[2018-12-18] MEDS: cyanocobalamin 500mcg tablet OGT SCH (08:00)
[2018-12-18] MEDS: calcium carbonate 500mg tablet PO SCH ×2 (08:00→19:30)
[2018-12-18] MEDS: CefTRIAXone 2gm/D5W 50ml 50 ML IV SCH (08:05)
[2018-12-18] MEDS: aspirin 81mg tab.chew PO SCH (08:06)
[2018-12-18] MEDS: HYDROcodone/acetaminophen 10/325mg tab PO PRN ×2 (08:06→19:31)
[2018-12-18] MEDS: clopidogrel 75mg tablet PO SCH (08:06)
[2018-12-18] MEDS: allopurinol 300 MG tablet PO SCH (08:07)
[2018-12-18] MEDS: colchicine 0.6mg tablet PO SCH (08:07)
[2018-12-18] MEDS: diltiazem 30mg tablet PO SCH ×3 (08:07→21:17)
[2018-12-18] MEDS: levoTHYROXINE 25mcg tablet PO SCH (08:14)
[2018-12-18] MEDS: ferrous sulfate 325mg tablet PO SCH (08:15)
[2018-12-18] MEDS: K and/or MAG REPLACEMENT MC SCH (08:42)
--- NOTE | 2018-12-18 10:45 | NUR ---
Cj from speech therapy paged about performing a modified barium swallow.
--- NOTE | 2018-12-18 11:04 | NUR ---
Reassessment: patient passed swallow eval this morning by REGIONAL GEODETIC ADVISOR to pureed foods and nectar thick liquids. Modified barium swallow is pending. TPN pending weaning in view of diet advancement. Pt weak, working with PT, appetite is poor s/p extubation, did not eat much of first meal per bedside RN. Will continue to follow. Rec: 1. Continue pureed diet with nectar thick liquids per REGIONAL GEODETIC ADVISOR recs 2. monitor need for nectar thick liquid ONS 3. routine bowel care 4. wt per rx Addendum: 12/18/18 at [address] Amended: Links added.
--- NOTE | 2018-12-18 11:30 | NUR ---
THAO Morel pulled left chest tube. Pt tolerated well without any adverse effect. The right chest tube is still draining fluid, pending MD order to pull chest tube in a few days.
--- NOTE | 2018-12-18 12:00 | NUR ---
Nathan PT, assisted pt tsit up at bedside, dangled for more than 5 min, then helped pt into a chair for lunch.
[2018-12-18] MEDS ORDERED: predniSONE 20 mg tablet PO SCH (13:55)
[2018-12-18] MEDS: ketorolac trometh. 30mg/ml inj. IV SCH (16:25)
--- NOTE | 2018-12-18 18:00 | NUR ---
Problems reprioritized. Patient report given to RA Elva, questions answered & plan of care reviewed with JENNY Stevenson .
--- NOTE | 2018-12-18 18:22 | NUR ---
Problems reprioritized. Patient report given, questions answered & plan of care reviewed with Elva ALVARADO.
[2018-12-18] MEDS: polyethylene glycol 3350 17gm powd pack PO SCH (21:00)
[2018-12-19] VITALS (22 sets, daily range): BP systolic 119–159; BP diastolic 55–73
[2018-12-19] MEDS: ketorolac trometh. 30mg/ml inj. IV SCH ×2 (00:40→08:04)
[2018-12-19 03:28] LABS: RHEUM FACTOR QUAL REFLEX TITER NEGATIVE (Neg)
[2018-12-19 03:40] LABS: ALANINE AMINOTRANSFERASE 177 U/L (12-78); ALBUMIN 1.9 G/DL (3.4-5.0); ALBUMIN/GLOBULIN RATIO 0.5 (1.1-1.5); ALKALINE PHOSPHATASE 91 IU/L (46-116); ANION GAP 5 (8-16); ASPARTATE AMINO TRANSFERASE 133 U/L (10-37); BILIRUBIN,TOTAL 0.4 MG/DL (0.1-1.0); BLOOD UREA NITROGEN 26 MG/DL (7-18); BUN/CREATININE RATIO 34.2 (6.6-38.0); CALCIUM 8.6 MG/DL (8.5-10.1); CHLORIDE 105 MMOL/L (99-107); CREATININE 0.76 MG/DL (0.40-0.90); GLUCOSE 91 MG/DL (70-104); MAGNESIUM 2.3 MG/DL (1.5-2.4); PHOSPHORUS 3.8 MG/DL (2.3-4.5); SODIUM 140 MMOL/L (135-145); TOTAL CARBON DIOXIDE 29.6 MMOL/L (24-32); TOTAL PROTEIN 5.5 G/DL (6.4-8.2); eGFR 72 ML/MIN
[2018-12-19 03:53] LABS: LYMPHOCYTES # (AUTO) 0.4 X10'3 (1.1-4.8); NEUTROPHILS # (AUTO) 2.8 X10'3 (1.8-7.7); WHITE BLOOD COUNT 3.3 X10'3 (4.5-11.0)
[2018-12-19 03:55] LABS: BASOPHILS % (AUTO) 0.7 % (0-1); EOSINOPHILS % (AUTO) 0.9 % (0-6); HEMATOCRIT 22.9 % (35.0-45.0); HEMOGLOBIN 7.7 g/dl (12.0-16.0); LYMPHOCYTES % (AUTO) 11.9 % (21-51); MEAN CORPUSCULAR HGB CONC 33.7 g/dL (33.0-36.5); MEAN CORPUSCULAR VOLUME 104.1 FL (78-98); MEAN PLATELET VOLUME 7.9 FL (7.4-10.4); MONOCYTES # (AUTO) 0.1 X10'3 (0-0.9); NEUTROPHILS % (AUTO) 83.5 % (42-75); RED CELL DISTRIBUTION WIDTH 25.3 % (11.5-14.5)
--- NOTE | 2018-12-19 04:24 | NUR ---
HAVE ANOTHER EPISODE OF RESTLESSNESS AND AGITATION WHEN TRYING TO REPOSITION HER , CLAIMED CA NOT BREATH , O2 SATS DOWN TO 62 % , MORPHINE 2MG GIVEN AND SLOWLY CALM DOWN STILL ON BIPAP AT 30% FIO2 , HEART RATE STILL TO ABOVE 100 BUT CALMER AT THIS TIME. Addendum: 12/19/18 at 0653 by Elva Mohan RN CHARTED ON WRONG CHART
[2018-12-19] MEDS: HYDROcodone/acetaminophen 10/325mg tab PO PRN ×3 (05:27→20:58)
--- NOTE | 2018-12-19 06:54 | NUR ---
PATIENT IN BED DENIES PAIN , REPORT GIVEN TO OSMANI ALVARADO
[2018-12-19 06:56] LABS: PLATELET COUNT 41 X10'3 (140-440)
[2018-12-19 06:59] LABS: ANISOCYTOSIS 3+; PLATELET ESTIMATE DECREASED; POLYCHROMASIA FEW; TOTAL CELLS COUNTED 100
[2018-12-19] MEDS: K and/or MAG REPLACEMENT MC SCH (08:00)
[2018-12-19] MEDS: docusate sodium 100mg/10ml UD cup PO SCH ×2 (08:00→20:00)
[2018-12-19] MEDS: levoFLOXACIN-Levaquin 500mg/D5 100 ML IV SCH (08:03)
[2018-12-19] MEDS: CefTRIAXone 2gm/D5W 50ml 50 ML IV SCH (08:03)
[2018-12-19] MEDS: diltiazem 30mg tablet PO SCH ×3 (08:13→20:57)
[2018-12-19] MEDS: clopidogrel 75mg tablet PO SCH (08:14)
[2018-12-19] MEDS: allopurinol 300 MG tablet PO SCH (08:14)
[2018-12-19] MEDS: aspirin 81mg tab.chew PO SCH (08:15)
[2018-12-19] MEDS: levoTHYROXINE 25mcg tablet PO SCH (08:15)
[2018-12-19] MEDS: cyanocobalamin 500mcg tablet OGT SCH (08:15)
[2018-12-19] MEDS: vitamin D (cholecalciferol) 1,000 unit tablet PO SCH (08:16)
[2018-12-19] MEDS: pravastatin 40mg tablet PO SCH (08:16)
[2018-12-19] MEDS: ferrous sulfate 325mg tablet PO SCH (08:16)
[2018-12-19] MEDS: calcium carbonate 500mg tablet PO SCH ×2 (08:16→21:00)
[2018-12-19] MEDS ORDERED: epoetin 20,000 units/ml inj SQ ONE (09:50)
--- NOTE | 2018-12-19 13:00 | NUR ---
Dr. Penn at bedside to take right pig-tail out. Patient tolerated well. Dressing applied. Will order follow-up x-ray.
--- NOTE | 2018-12-19 15:21 | NUR ---
Patient report given to German ALVARADO with all questions answered.
--- NOTE | 2018-12-19 15:45 | NUR ---
Patient in room PCU 3014. I have received report from Lincoln ALVARADO and had the opportunity to ask questions and assume patient care.
--- NOTE | 2018-12-19 15:48 | NUR ---
Patient transferred up to PCU rm 3014-A with all belongings including dentures, slippers, pants, and top.
[2018-12-19] MEDS: ketorolac tromethamine 15mg/ml inj. IV SCH (16:00)
--- NOTE | 2018-12-19 18:00 | NUR ---
Problems reprioritized. Patient report given, questions answered & plan of care reviewed with Anisha ALVARADO.
[2018-12-19] MEDS: polyethylene glycol 3350 17gm powd pack PO SCH (21:00)
[2018-12-19] MEDS ORDERED: heparin sodium, porcine/PF 100unit/ml 5ML syringe IV ONE (22:45)
[2018-12-20] MEDS: ketorolac tromethamine 15mg/ml inj. IV SCH ×4 (00:17→23:55)
[2018-12-20 03:00] VITALS: BP 154/65
--- NOTE | 2018-12-20 05:59 | NUR ---
Patient in room PCU 3014. I have received report from Cheryle ALVARADO and had the opportunity to ask questions and assume patient care.
--- NOTE | 2018-12-20 06:24 | NUR ---
Problems reprioritized. Patient report given, questions answered & plan of care reviewed with Nellie ALVARADO.
--- NOTE | 2018-12-20 06:26 | NUR ---
Patient in room PCU 3014. I have received report from Anisha ALVARADO and had the opportunity to ask questions and assume patient care.
[2018-12-20 06:52] LABS: EOSINOPHILS % (AUTO) 0.6 % (0-6); HEMOGLOBIN 9.8 g/dl (12.0-16.0); LYMPHOCYTES # (AUTO) 0.5 X10'3 (1.1-4.8); MONOCYTES % (AUTO) 0.3 % (2-12)
[2018-12-20 06:53] LABS: BASOPHILS % (AUTO) 0.4 % (0-1); HEMATOCRIT 28.8 % (35.0-45.0); LYMPHOCYTES % (AUTO) 11.5 % (21-51); MEAN CORPUSCULAR HEMOGLOBIN 33.2 PG (27.0-31.0); MEAN CORPUSCULAR VOLUME 97.7 FL (78-98); MEAN PLATELET VOLUME 7.6 FL (7.4-10.4); NEUTROPHILS % (AUTO) 87.2 % (42-75); RED BLOOD COUNT 2.95 X10'6 (4.20-5.60); RED CELL DISTRIBUTION WIDTH 29.7 % (11.5-14.5); WHITE BLOOD COUNT 4.6 X10'3 (4.5-11.0)
[2018-12-20 06:58] LABS: PLATELET COUNT 49 X10'3 (140-440)
[2018-12-20 07:00] VITALS: BP 161/81
--- NOTE | 2018-12-20 07:15 | NUR ---
paged amber critical PAGER ID: [phone] MESSAGE: [phone] Helen parnell Platelet 49 increased from yesterday 41 Colette ext [phone]
[2018-12-20] MEDS: ferrous sulfate 325mg tablet PO SCH (07:42)
[2018-12-20] MEDS: cyanocobalamin 500mcg tablet OGT SCH (07:42)
[2018-12-20] MEDS: clopidogrel 75mg tablet PO SCH (07:42)
[2018-12-20] MEDS: allopurinol 300 MG tablet PO SCH (07:42)
[2018-12-20] MEDS: calcium carbonate 500mg tablet PO SCH ×2 (07:42→20:00)
[2018-12-20] MEDS: aspirin 81mg tab.chew PO SCH (07:43)
[2018-12-20] MEDS: levoTHYROXINE 25mcg tablet PO SCH (07:43)
[2018-12-20] MEDS: vitamin D (cholecalciferol) 1,000 unit tablet PO SCH (07:43)
[2018-12-20] MEDS: diltiazem 30mg tablet PO SCH ×3 (07:43→20:57)
[2018-12-20] MEDS: docusate sodium 100mg/10ml UD cup PO SCH ×2 (07:43→20:00)
[2018-12-20] MEDS: CefTRIAXone 2gm/D5W 50ml 50 ML IV SCH (07:45)
[2018-12-20] MEDS: pravastatin 40mg tablet PO SCH (07:45)
[2018-12-20] MEDS: K and/or MAG REPLACEMENT MC SCH (08:00)
[2018-12-20 11:00] VITALS: BP 155/65
[2018-12-20] MEDS: HYDROcodone/acetaminophen 10/325mg tab PO PRN ×2 (13:09→20:58)
[2018-12-20 15:00] VITALS: BP 150/77
--- NOTE | 2018-12-20 18:18 | NUR ---
Patient in room PCU 3014. I have received report from Samara ALVARADO and had the opportunity to ask questions and assume patient care.
--- NOTE | 2018-12-20 18:31 | NUR ---
Problems reprioritized. Patient report given, questions answered & plan of care reviewed with Anisha ALVARADO.
[2018-12-20 19:00] VITALS: BP 139/63
[2018-12-20] MEDS: polyethylene glycol 3350 17gm powd pack PO SCH (21:00)
[2018-12-20 23:00] VITALS: BP 152/63
[2018-12-21 03:00] VITALS: BP 151/65
[2018-12-21] MEDS: HYDROcodone/acetaminophen 10/325mg tab PO PRN (03:00)
[2018-12-21 06:00] VITALS: BP 153/74
--- NOTE | 2018-12-21 06:18 | NUR ---
Problems reprioritized. Patient report given, questions answered & plan of care reviewed with Samara ALVARADO.
--- NOTE | 2018-12-21 06:27 | NUR ---
Patient in room PCU 3014. I have received report from Anisha ALVARADO and had the opportunity to ask questions and assume patient care.
[2018-12-21 06:59] LABS: HEMOGLOBIN 8.6 g/dl (12.0-16.0)
[2018-12-21 07:02] LABS: HEMATOCRIT 24.9 % (35.0-45.0); MEAN CORPUSCULAR HEMOGLOBIN 33.6 PG (27.0-31.0); MEAN CORPUSCULAR HGB CONC 34.5 g/dL (33.0-36.5); MEAN CORPUSCULAR VOLUME 97.5 FL (78-98); RED BLOOD COUNT 2.56 X10'6 (4.20-5.60); RED CELL DISTRIBUTION WIDTH 29.3 % (11.5-14.5); WHITE BLOOD COUNT 4.4 X10'3 (4.5-11.0)
[2018-12-21 07:21] LABS: ALANINE AMINOTRANSFERASE 122 U/L (12-78); ALBUMIN 2.1 G/DL (3.4-5.0); ALBUMIN/GLOBULIN RATIO 0.6 (1.1-1.5); ALKALINE PHOSPHATASE 81 IU/L (46-116); ANION GAP 8 (8-16); ASPARTATE AMINO TRANSFERASE 55 U/L (10-37); BILIRUBIN,TOTAL 0.7 MG/DL (0.1-1.0); BLOOD UREA NITROGEN 29 MG/DL (7-18); BUN/CREATININE RATIO 40.3 (6.6-38.0); CALCIUM 8.6 MG/DL (8.5-10.1); CHLORIDE 107 MMOL/L (99-107); CREATININE 0.72 MG/DL (0.40-0.90); GLUCOSE 100 MG/DL (70-104); MAGNESIUM 2.1 MG/DL (1.5-2.4); PHOSPHORUS 3.8 MG/DL (2.3-4.5); POTASSIUM 3.8 MMOL/L (3.5-5.1); PREALBUMIN 12.7 MG/DL (19-36); SODIUM 143 MMOL/L (135-145); TOTAL PROTEIN 5.4 G/DL (6.4-8.2); TRIGLYCERIDES 63 MG/DL (20-135); eGFR 77 ML/MIN
[2018-12-21] MEDS: calcium carbonate 500mg tablet PO SCH (08:00)
[2018-12-21] MEDS: vitamin D (cholecalciferol) 1,000 unit tablet PO SCH (08:00)
[2018-12-21] MEDS: K and/or MAG REPLACEMENT MC SCH (08:00)
[2018-12-21] MEDS: cyanocobalamin 500mcg tablet OGT SCH (08:00)
[2018-12-21] MEDS: ferrous sulfate 325mg tablet PO SCH (08:00)
[2018-12-21 08:05] LABS: PLATELET COUNT 47 X10'3 (140-440)
--- NOTE | 2018-12-21 09:00 | NUR ---
Dr. Penn is aware of patients platelet count.
[2018-12-21] MEDS: ketorolac tromethamine 15mg/ml inj. IV SCH (09:17)
[2018-12-21] MEDS: docusate sodium 100mg/10ml UD cup PO SCH (09:17)
[2018-12-21] MEDS: pravastatin 40mg tablet PO SCH (09:18)
[2018-12-21] MEDS: diltiazem 30mg tablet PO SCH (09:18)
[2018-12-21] MEDS: aspirin 81mg tab.chew PO SCH (09:19)
[2018-12-21] MEDS: CefTRIAXone 2gm/D5W 50ml 50 ML IV SCH (09:19)
[2018-12-21] MEDS: levoTHYROXINE 25mcg tablet PO SCH (09:19)
[2018-12-21] MEDS: clopidogrel 75mg tablet PO SCH (09:20)
[2018-12-21] MEDS: allopurinol 300 MG tablet PO SCH (09:20)
[2018-12-21 10:28] LABS: TOTAL CELLS COUNTED 100
[2018-12-21 10:29] LABS: ANISOCYTOSIS 3+; HYPOCHROMASIA 1+; PLATELET ESTIMATE DECREASED
[2018-12-21 10:30] LABS: POLYCHROMASIA FEW
--- NOTE | 2018-12-21 12:30 | NUR ---
Called report to Harjinder. Report given to Hayes ALVARADO
--- NOTE | 2018-12-21 13:00 | NUR ---
Patient discharged to [facility]. All patients belongings and patients packet gathered and taken with the transport. Tele box removed and returned to tele box. IV removed cannula intact. Patient was accompanied by family members with the transport team.
== END 2018-12-21 13:00 | DRG 870 ==
LOC: ER 04:45 → EDBEDREQTM 08:59 → EDBEDREQSVC 08:59 → ICU 2S 09:53 → CMPBEDREQ 12-14 15:15 → PCU 3S 12-19 15:52
PROVIDERS: ADMIT Family Medicine; ATTEND Internal Medicine Critical Care Medicine
PROC: 5A1955Z Respiratory Ventilation, Greater than 96 Consecutive Hours (ICD-10-PCS; principal; 2018-12-12)
PROC: 0BH17EZ Insertion of Endotracheal Airway into Trachea, Via Natural or Artificial Opening (ICD-10-PCS; 2018-12-12)
PROC: 30233R1 Transfusion of Nonautologous Platelets into Peripheral Vein, Percutaneous Approach (ICD-10-PCS; 2018-12-12)
PROC: 30233N1 Transfusion of Nonautologous Red Blood Cells into Peripheral Vein, Percutaneous Approach (ICD-10-PCS; 2018-12-12)
PROC: 30233N1 Transfusion of Nonautologous Red Blood Cells into Peripheral Vein, Percutaneous Approach (ICD-10-PCS; 2018-12-13)
PROC: 30233R1 Transfusion of Nonautologous Platelets into Peripheral Vein, Percutaneous Approach (ICD-10-PCS; 2018-12-14)
PROC: 0W9B30Z Drainage of Left Pleural Cavity with Drainage Device, Percutaneous Approach (ICD-10-PCS; 2018-12-14)
PROC: 0W9930Z Drainage of Right Pleural Cavity with Drainage Device, Percutaneous Approach (ICD-10-PCS; 2018-12-14)
PROC: 02H633Z Insertion of Infusion Device into Right Atrium, Percutaneous Approach (ICD-10-PCS; 2018-12-17)
PROC: 30233N1 Transfusion of Nonautologous Red Blood Cells into Peripheral Vein, Percutaneous Approach (ICD-10-PCS; 2018-12-19)
DX: A41.9 Sepsis, unspecified organism (principal); J18.9 Pneumonia, unspecified organism; J96.90 Respiratory failure, unspecified, unspecified whether with hypoxia or hypercapnia; C94.6 Myelodysplastic disease, not elsewhere classified; N17.9 Acute kidney failure, unspecified; E46 Unspecified protein-calorie malnutrition; I13.0 Hypertensive heart and chronic kidney disease with heart failure and stage 1 through stage 4 chronic kidney disease, or unspecified chronic kidney disease; J91.8 Pleural effusion in other conditions classified elsewhere; J93.9 Pneumothorax, unspecified; G89.29 Other chronic pain; I25.10 Atherosclerotic heart disease of native coronary artery without angina pectoris; I50.9 Heart failure, unspecified; K76.1 Chronic passive congestion of liver; M19.90 Unspecified osteoarthritis, unspecified site; M54.9 Dorsalgia, unspecified; R94.5 Abnormal results of liver function studies; N18.9 Chronic kidney disease, unspecified; R00.1 Bradycardia, unspecified; E87.5 Hyperkalemia; D69.6 Thrombocytopenia, unspecified; I48.91 Unspecified atrial fibrillation; Z88.0 Allergy status to penicillin; Z88.2 Allergy status to sulfonamides; Z88.1 Allergy status to other antibiotic agents; Z88.8 Allergy status to other drugs, medicaments and biological substances; Z79.890 Hormone replacement therapy; Z79.899 Other long term (current) drug therapy; Z79.82 Long term (current) use of aspirin; Z68.23 Body mass index [BMI] 23.0-23.9, adult; Z80.49 Family history of malignant neoplasm of other genital organs; Z82.49 Family history of ischemic heart disease and other diseases of the circulatory system; Z83.3 Family history of diabetes mellitus; Z87.891 Personal history of nicotine dependence; Z90.710 Acquired absence of both cervix and uterus; Z95.5 Presence of coronary angioplasty implant and graft; Z79.01 Long term (current) use of anticoagulants
CPT/HCPCS: 32557; 36415; 36600; 71045; 71046; 71250; 74018; 74176; 74230; 76937; 80053; 81001; 82803; 82948; 83605; 83615; 83735; 83880; 84100; 84132; 84134; 84157; 84443; 84478; 84484; 84550; 85018; 85025; 85610; 85730; 86430; 86870; 86885; 86900; 86901; 86902; 86905; 86920; 86922; 86945; 87040; 87070; 87081; 89051; 92508; 92616; 93005; 93306; 94002; 94003; 94640; 94760; 96365; 96375; 96376; 97110; 97116; 97530; 99291; G0378; J0461; J0692; J0696; J1265; J1642; J1650; J1815; J1885; J1940; J1956; J2060; J2250; J2270; J2405; J2765; J3010; J3370; J3420; J3430; J3490; J7040; J7070; J7512; J7611; P9016; P9035; Q4081

== ENCOUNTER 2019-04-05 16:33 | Inpatient (IN) | payer MEDICARE ==
[~2019-04-05] VITALS: Ht 172.7 cm; Wt 58.6 kg
[~2019-04-05 16:33] MED LIST changes: +ALLO100T PO; +ASPI-611 PO; +CALC500T PO; +CHOL10002 PO; -CHOL400C8 PO; +CLOP75TA35 PO; -HYDR-3972 PO; +HYDR-4353 PO
[2019-04-05 16:59] LABS: LYMPHOCYTES # (AUTO) 0.3 X10'3 (1.1-4.8); NEUTROPHILS # (AUTO) 3.5 X10'3 (1.8-7.7); WHITE BLOOD COUNT 3.8 X10'3 (4.5-11.0)
[2019-04-05 17:01] LABS: BASOPHILS % (AUTO) 0.3 % (0-1); EOSINOPHILS % (AUTO) 0.3 % (0-6); LYMPHOCYTES % (AUTO) 6.7 % (21-51); MEAN CORPUSCULAR HEMOGLOBIN 35.7 PG (27.0-31.0); MEAN CORPUSCULAR VOLUME 101.8 FL (78-98); MEAN PLATELET VOLUME 7.5 FL (7.4-10.4); MONOCYTES % (AUTO) 0.2 % (2-12); NEUTROPHILS % (AUTO) 92.5 % (42-75); RED BLOOD COUNT 1.78 X10'6 (4.20-5.60); RED CELL DISTRIBUTION WIDTH 31.7 % (11.5-14.5)
[2019-04-05 17:11] LABS: PARTIAL THROMBOPLASTIN TIME 37 SECONDS (22-32)
[2019-04-05 17:12] LABS: ALANINE AMINOTRANSFERASE 14 U/L (12-78); ALBUMIN 2.8 G/DL (3.4-5.0); ALBUMIN/GLOBULIN RATIO 0.8 (1.1-1.5); ALKALINE PHOSPHATASE 66 IU/L (46-116); ANION GAP 6 (8-16); ASPARTATE AMINO TRANSFERASE 18 U/L (10-37); BILIRUBIN,TOTAL 0.7 MG/DL (0.1-1.0); BLOOD UREA NITROGEN 18 MG/DL (7-18); BUN/CREATININE RATIO 20.2 (6.6-38.0); CALCIUM 8.9 MG/DL (8.5-10.1); CHLORIDE 105 MMOL/L (99-107); CREATININE 0.89 MG/DL (0.40-0.90); GLUCOSE 106 MG/DL (70-104); POTASSIUM 3.2 MMOL/L (3.5-5.1); SODIUM 140 MMOL/L (135-145); TOTAL CARBON DIOXIDE 29.3 MMOL/L (24-32); TOTAL PROTEIN 6.1 G/DL (6.4-8.2); eGFR 60 ML/MIN
[2019-04-05 17:23] LABS: HEMATOCRIT 18.2 % (35.0-45.0); HEMOGLOBIN 6.4 g/dl (12.0-16.0); PLATELET COUNT 45 X10'3 (140-440)
[2019-04-05] MEDS ORDERED: magnesium 2GM in 50ml NS 50 ML IV PRN (17:55)
[2019-04-05] MEDS ORDERED: ondansetron/PF 4mg/2ml inj IV PRN (17:55)
[2019-04-05] MEDS ORDERED: morphine 2 MG/ML inj. syringe IV PRN ×2 (17:55)
[2019-04-05] MEDS ORDERED: potassium Cl 20 mEq SR tablet PO PRN (17:55)
[2019-04-05] MEDS ORDERED: magnesium hydroxide 30ml (MOM) UD suspension PO PRN (17:55)
[2019-04-05] MEDS ORDERED: potassium CL 10mEq/100ml bag 100 ML IV PRN ×2 (17:55)
[2019-04-05] MEDS ORDERED: mag hydrox/Alum hydrox/simeth 30ml oral suspension PO PRN (17:55)
[2019-04-05] MEDS ORDERED: acetaminophen 325mg tablet PO PRN (17:55)
[2019-04-05] MEDS ORDERED: HYDROcodone/acetaminophen 5mg/325mg tablet PO PRN (17:55)
[2019-04-05] MEDS ORDERED: magnesium Cl slow-release 64mg tablet PO PRN (17:55)
[2019-04-05] MEDS ORDERED: magnesium 4gm in 100ml NS 100 ML IV PRN (17:55)
[2019-04-05 18:11] LABS: ANISOCYTOSIS 3+; ELLIPTOCYTES 1+; PLATELET ESTIMATE DECREASED; POLYCHROMASIA 1+; SCHISTOCYTES FEW; TEAR DROP CELLS FEW
[2019-04-05] MEDS ORDERED: nitroGLYCERIN 0.4mg SUBLingual tab SL PRN (18:30)
[2019-04-05] MEDS ORDERED: DILT120C52 PO (18:43)
[2019-04-05] MEDS ORDERED: LAN0.125T PO (18:43)
[2019-04-05] MEDS ORDERED: POTA-82 PO (18:49)
[2019-04-05] MEDS ORDERED: BISA-155 PO (18:55)
--- NOTE | 2019-04-05 18:59 | NUR ---
received report from Katya ALVARADO ER. had oportunity to ask questions. plan is to transfuse 2 units but awaiting special blood from [place].
--- NOTE | 2019-04-05 19:20 | NUR ---
pt arrived on unit with all belongings via moshercaleb, son at bedside, tele attached to pt, VS stable, oriented pt to environment, awaiting blood from [facility]
[2019-04-05 19:25] VITALS: BP 149/63
[2019-04-05] MEDS: potassium Cl 20 mEq SR tablet PO PRN (20:40)
[2019-04-05] MEDS: gabapentin 300mg capsule PO SCH (22:31)
[2019-04-05] MEDS: HYDROcodone/acetaminophen 10/325mg tab PO PRN (22:32)
[2019-04-05 23:00] VITALS: BP 138/58
[2019-04-06] MEDS: potassium Cl 20 mEq SR tablet PO PRN (01:08)
[2019-04-06 03:00] VITALS: BP 125/40
[2019-04-06] MEDS: HYDROcodone/acetaminophen 10/325mg tab PO PRN ×3 (05:03→20:35)
[2019-04-06 05:44] LABS: ALBUMIN 2.7 G/DL (3.4-5.0); ANION GAP 7 (8-16); BLOOD UREA NITROGEN 14 MG/DL (7-18); CALCIUM 9.2 MG/DL (8.5-10.1); CHLORIDE 107 MMOL/L (99-107); GLUCOSE 95 MG/DL (70-104); MAGNESIUM 1.9 MG/DL (1.5-2.4); POTASSIUM 3.9 MMOL/L (3.5-5.1); SODIUM 142 MMOL/L (135-145); TOTAL CARBON DIOXIDE 27.6 MMOL/L (24-32); eGFR 79 ML/MIN
[2019-04-06 05:52] LABS: BASOPHILS % (AUTO) 0.6 % (0-1); EOSINOPHILS % (AUTO) 0.5 % (0-6); LYMPHOCYTES # (AUTO) 0.4 X10'3 (1.1-4.8); LYMPHOCYTES % (AUTO) 12.3 % (21-51); MEAN CORPUSCULAR HEMOGLOBIN 35.8 PG (27.0-31.0); MEAN CORPUSCULAR HGB CONC 35.4 g/dL (33.0-36.5); MEAN PLATELET VOLUME 7.2 FL (7.4-10.4); MONOCYTES # (AUTO) 0.1 X10'3 (0-0.9); MONOCYTES % (AUTO) 1.5 % (2-12); NEUTROPHILS # (AUTO) 2.8 X10'3 (1.8-7.7); NEUTROPHILS % (AUTO) 85.1 % (42-75); RED BLOOD COUNT 1.77 X10'6 (4.20-5.60); RED CELL DISTRIBUTION WIDTH 31.9 % (11.5-14.5); WHITE BLOOD COUNT 3.3 X10'3 (4.5-11.0)
[2019-04-06 05:56] LABS: HEMOGLOBIN 6.3 g/dl (12.0-16.0)
[2019-04-06 05:58] LABS: PLATELET COUNT 48 X10'3 (140-440)
[2019-04-06 06:00] VITALS: BP 131/49
[2019-04-06 06:00] LABS: HEMATOCRIT 18.2 % (35.0-45.0)
--- NOTE | 2019-04-06 06:05 | NUR ---
Patient in room PCU 3011. I have received report from Inocente RN and had the opportunity to ask questions and assume patient care.
--- NOTE | 2019-04-06 06:39 | NUR ---
Problems reprioritized. Patient report given, questions answered & plan of care reviewed with Camille Rebollar RN.
[2019-04-06 06:51] LABS: TOTAL CELLS COUNTED 100
[2019-04-06 06:52] LABS: ANISOCYTOSIS 3+; PLATELET ESTIMATE DECREASED
[2019-04-06 06:53] LABS: POLYCHROMASIA 1+; TEAR DROP CELLS FEW
[2019-04-06 06:54] LABS: ELLIPTOCYTES FEW; SCHISTOCYTES FEW; SPHEROCYTES FEW
[2019-04-06 06:55] LABS: NUCLEATED RED BLOOD CELLS 2 /100WBC (0-0)
[2019-04-06] MEDS: gabapentin 300mg capsule PO SCH ×2 (07:40→20:34)
[2019-04-06] MEDS: K and/or MAG REPLACEMENT MC SCH (08:00)
--- NOTE | 2019-04-06 09:30 | NUR ---
Paged hospitalist, Dr. Galo, RE blood transfusion. PAGER ID: [phone] MESSAGE: Gisela x [phone]. RE Will, P. 3011. Blood arrived from [place], need order to transfuse JUAN ANTONIO and for you to sign consent. Thank you!
[2019-04-06] MEDS: allopurinol 100mg tablet PO SCH (09:50)
[2019-04-06] MEDS ORDERED: furosemide 40mg tablet PO SCH (09:50)
[2019-04-06] MEDS ORDERED: bisacodyl 5mg tablet.DR PO PRN (09:50)
[2019-04-06 11:00] VITALS: BP 135/60
--- NOTE | 2019-04-06 11:04 | NUR ---
Held Lasix 120mg PO daily dose, due to MD order for Lasix 20mg IV between PRBC units. Will resume oral lasix tomorrow.
[2019-04-06] MEDS ORDERED: furosemide 40mg/4ml inj IV ONE (11:50)
[2019-04-06 15:00] VITALS: BP 145/69
[2019-04-06] MEDS ORDERED: diltiazem 30mg tablet PO ONE (15:15)
--- NOTE | 2019-04-06 16:33 | NUR ---
Malnutrition consult: Pt seen at bedside states she's unsure of what her UBW is and reports 15 lb wt loss since starting chemo a few months ago. Per wt hx pt was 150 lbs 12/18/18 using bed scale, current documented wt is 121 lbs however is pt stated. During RD interview pt reports she currently weighs [address] d/w RN obtaining a scaled wt for accuracy. Pt reports a good appetite and states she is getting full but then later states she has a low appetite. Pt currently on a heart healthy diet documented with 50-75% PO intake likely meeting nutrient needs for geriatric age. Pt with no significant decrease in muscle strength and no edema. Pt appears small but not cachectic. Pt currently lacks a minimum of two criteria for malnutrition. Will f/u tomorrow to further assess for malnutrition pending scaled wt. Pt denies any food allergies or difficulty chewing/swallowing. Pt reports some constipation with LBM 1124 and agrees to prune juice with dinner, d/w dietary. Pt provided with alternative menu to further optimize PO intake and RD contact information. Pt with no food preferences at this time. Will continue to follow. Addendum: 04/06/19 at [address] Amended: Links added.
[2019-04-06] MEDS ORDERED: digoxin 125mcg (0.125mg) tablet PO ONE (17:00)
[2019-04-06] MEDS ORDERED: digoxin 125mcg (0.125mg) tablet PO SCH ×2 (17:00→20:00)
--- NOTE | 2019-04-06 17:55 | NUR ---
Order to transfuse 2 units PRBC performed, unable to document in transfusion flowsheet due to patient specific unit number. Confirmed with lab to document on downtime form. All transfusion documentation taken on downtime form and faxed to pharmacy when transfusion was complete. Hardcopy placed in patient's chart.
--- NOTE | 2019-04-06 18:14 | NUR ---
Problems reprioritized. Patient report given, questions answered & plan of care reviewed with Inocente RN.
--- NOTE | 2019-04-06 18:16 | NUR ---
New hire documentation: I have reviewed and agree with all interventions, assessments performed and documented by Gisela ALVARADO.
--- NOTE | 2019-04-06 18:24 | NUR ---
Patient in room PCU 3011. I have received report from Camille Rebollar RN and had the opportunity to ask questions and assume patient care.
[2019-04-06 19:00] VITALS: BP 142/60
[2019-04-06] MEDS ORDERED: gabapentin 300mg capsule PO SCH (20:00)
[2019-04-06 20:32] LABS: HEMATOCRIT 27.6 % (35.0-45.0); HEMOGLOBIN 9.8 g/dl (12.0-16.0); MEAN CORPUSCULAR HEMOGLOBIN 33.1 PG (27.0-31.0); MEAN CORPUSCULAR HGB CONC 35.4 g/dL (33.0-36.5); MEAN CORPUSCULAR VOLUME 93.7 FL (78-98); MEAN PLATELET VOLUME 7.7 FL (7.4-10.4); RED BLOOD COUNT 2.94 X10'6 (4.20-5.60); RED CELL DISTRIBUTION WIDTH 25.2 % (11.5-14.5); WHITE BLOOD COUNT 4.2 X10'3 (4.5-11.0)
[2019-04-06] MEDS: pravastatin 40mg tablet PO SCH (20:32)
[2019-04-06] MEDS: potassium chloride 8mEq ER tablet PO SCH (20:33)
[2019-04-06] MEDS: diltiazem SR 60mg capsule (twice daily) PO SCH (20:35)
[2019-04-06 20:36] LABS: PLATELET COUNT 44 X10'3 (140-440)
[2019-04-06 23:00] VITALS: BP 133/57
[2019-04-07] VITALS (9 sets, daily range): BP systolic 132–154; BP diastolic 53–68
[2019-04-07] MEDS: HYDROcodone/acetaminophen 10/325mg tab PO PRN ×3 (04:39→22:32)
[2019-04-07 05:34] LABS: ALBUMIN 2.7 G/DL (3.4-5.0); ANION GAP 9 (8-16); BLOOD UREA NITROGEN 13 MG/DL (7-18); BUN/CREATININE RATIO 20.6 (6.6-38.0); CALCIUM 9.2 MG/DL (8.5-10.1); CHLORIDE 105 MMOL/L (99-107); CREATININE 0.63 MG/DL (0.40-0.90); GLUCOSE 96 MG/DL (70-104); MAGNESIUM 1.9 MG/DL (1.5-2.4); POTASSIUM 3.9 MMOL/L (3.5-5.1); SODIUM 140 MMOL/L (135-145); TOTAL CARBON DIOXIDE 26.4 MMOL/L (24-32); eGFR 89 ML/MIN
--- NOTE | 2019-04-07 06:31 | NUR ---
Problems reprioritized. Patient report given, questions answered & plan of care reviewed with Ting Almanza RN.
--- NOTE | 2019-04-07 06:32 | NUR ---
Patient in room PCU 3011. I have received report from Inocente RN and had the opportunity to ask questions and assume patient care.
[2019-04-07 06:41] LABS: HEMOGLOBIN 8.9 g/dl (12.0-16.0)
[2019-04-07 06:43] LABS: HEMATOCRIT 25.2 % (35.0-45.0); MEAN CORPUSCULAR HEMOGLOBIN 33.6 PG (27.0-31.0); MEAN CORPUSCULAR HGB CONC 35.4 g/dL (33.0-36.5); MEAN CORPUSCULAR VOLUME 94.9 FL (78-98); MEAN PLATELET VOLUME 7.9 FL (7.4-10.4); RED BLOOD COUNT 2.66 X10'6 (4.20-5.60); RED CELL DISTRIBUTION WIDTH 23.9 % (11.5-14.5); WHITE BLOOD COUNT 4.1 X10'3 (4.5-11.0)
[2019-04-07 06:47] LABS: PLATELET COUNT 43 X10'3 (140-440)
[2019-04-07 07:00] LABS: PLATELET ESTIMATE DECREASED; TOTAL CELLS COUNTED 100
--- NOTE | 2019-04-07 07:00 | NUR ---
Page Dr. Villalta PAGER ID: [phone] MESSAGE: Room 3011 WillYuliya: Patient's PLT: 43 this morning. Please advise, thank you. Ting ext [phone].
[2019-04-07 07:01] LABS: POLYCHROMASIA FEW
[2019-04-07 07:02] LABS: ANISOCYTOSIS 2+
[2019-04-07 07:03] LABS: ELLIPTOCYTES FEW; SPHEROCYTES FEW
[2019-04-07 07:04] LABS: SMUDGE CELLS FEW
[2019-04-07] MEDS: levoTHYROXINE 25mcg tablet PO SCH (07:29)
[2019-04-07] MEDS: diltiazem SR 60mg capsule (twice daily) PO SCH ×2 (07:29→21:03)
[2019-04-07] MEDS: vitamin D (cholecalciferol) 1,000 unit tablet PO SCH (07:30)
[2019-04-07] MEDS: furosemide 40mg tablet PO SCH (07:30)
[2019-04-07] MEDS: gabapentin 300mg capsule PO SCH ×2 (07:30→21:03)
[2019-04-07] MEDS: calcium carbonate 500mg tablet PO SCH (07:31)
[2019-04-07] MEDS: potassium chloride 8mEq ER tablet PO SCH ×2 (07:31→21:04)
[2019-04-07] MEDS: allopurinol 100mg tablet PO SCH (07:32)
[2019-04-07] MEDS: digoxin 125mcg (0.125mg) tablet PO SCH (07:32)
[2019-04-07] MEDS: K and/or MAG REPLACEMENT MC SCH (08:00)
--- NOTE | 2019-04-07 09:30 | NUR ---
Spoke with Dr. Villalta regarding patient's condition. Oxygen to be slowly titrated down to patient's baseline level at home of 2-3 L, with O2 staying at at least 92% and as patient tolerates.
--- NOTE | 2019-04-07 12:17 | NUR ---
F/U: Per RN, pt scaled wt 66.9kg. Pt wt stable, wt loss of 1.3kg in 3 months not significant. PO intake 50-75% on a Heart Healthy diet, meeting nutrient needs. Pt does not meet 2 criteria for malnutrition. Will continue to monitor. Addendum: 04/07/19 at 1218 by Wing An WOODWARD Amended: Links added. Addendum: 04/07/19 at [address] CRISSY Approroge
--- NOTE | 2019-04-07 18:20 | NUR ---
Patient in room PCU 3011. I have received report from JENNY Maguire and had the opportunity to ask questions and assume patient care.
--- NOTE | 2019-04-07 18:27 | NUR ---
Problems reprioritized. Patient report given, questions answered & plan of care reviewed with JENNY Tirado.
--- NOTE | 2019-04-07 18:30 | NUR ---
Patient in room PCU 3011. I have received report from Ting ALVARADO and had the opportunity to ask questions and assume patient care.
[2019-04-07] MEDS ORDERED: iohexol 300mg/ml 100ml inj. ONE (19:09)
[2019-04-07] MEDS: pravastatin 40mg tablet PO SCH (21:03)
[2019-04-08 03:00] VITALS: BP 126/61
--- NOTE | 2019-04-08 05:05 | NUR ---
I have reviewed and agree with all interventions, assessments performed and documented by JENNY Chowdhury.
[2019-04-08 05:18] LABS: HEMOGLOBIN 8.1 g/dl (12.0-16.0); MEAN CORPUSCULAR VOLUME 94.1 FL (78-98); WHITE BLOOD COUNT 2.9 X10'3 (4.5-11.0)
[2019-04-08 05:21] LABS: ALBUMIN 2.4 G/DL (3.4-5.0); ANION GAP 6 (8-16); BLOOD UREA NITROGEN 12 MG/DL (7-18); BUN/CREATININE RATIO 18.8 (6.6-38.0); CALCIUM 8.9 MG/DL (8.5-10.1); CHLORIDE 104 MMOL/L (99-107); CREATININE 0.64 MG/DL (0.40-0.90); GLUCOSE 90 MG/DL (70-104); HEMATOCRIT 22.7 % (35.0-45.0); MAGNESIUM 1.9 MG/DL (1.5-2.4); MEAN CORPUSCULAR HEMOGLOBIN 33.7 PG (27.0-31.0); MEAN CORPUSCULAR HGB CONC 35.8 g/dL (33.0-36.5); MEAN PLATELET VOLUME 7.6 FL (7.4-10.4); POTASSIUM 3.5 MMOL/L (3.5-5.1); RED BLOOD COUNT 2.41 X10'6 (4.20-5.60); RED CELL DISTRIBUTION WIDTH 25.8 % (11.5-14.5); SODIUM 140 MMOL/L (135-145); TOTAL CARBON DIOXIDE 29.8 MMOL/L (24-32); eGFR 88 ML/MIN
[2019-04-08 05:48] LABS: PLATELET COUNT 43 X10'3 (140-440)
--- NOTE | 2019-04-08 06:18 | NUR ---
Patient in room PCU 3011. I have received report from Candida ALVARADO and Trenton ALVARADO and had the opportunity to ask questions and assume patient care.
--- NOTE | 2019-04-08 06:20 | NUR ---
Problems reprioritized. Patient report given, questions answered & plan of care reviewed with JENNY Obrien.
--- NOTE | 2019-04-08 06:21 | NUR ---
Problems reprioritized. Patient report given,Camille ALVARADO questions answered & plan of care reviewed
[2019-04-08 06:30] VITALS: BP 118/50
[2019-04-08 06:44] LABS: NUCLEATED RED BLOOD CELLS 1 /100WBC (0-0); TOTAL CELLS COUNTED 100
[2019-04-08 06:45] LABS: ANISOCYTOSIS 3+; PLATELET ESTIMATE DECREASED
[2019-04-08 06:46] LABS: POIKILOCYTOSIS FEW; POLYCHROMASIA 1+
--- NOTE | 2019-04-08 07:07 | NUR ---
Paged RT for ABG notification that it needs to be done, was ordered on 04/07 NICK Solis, P. 3011. ABG ordered on 04/07 still needs to be done please, thank you!
[2019-04-08] MEDS: diltiazem SR 60mg capsule (twice daily) PO SCH (07:58)
[2019-04-08] MEDS: HYDROcodone/acetaminophen 10/325mg tab PO PRN ×3 (07:59→21:12)
[2019-04-08] MEDS: furosemide 40mg tablet PO SCH (07:59)
[2019-04-08] MEDS: potassium chloride 8mEq ER tablet PO SCH ×2 (07:59→19:41)
[2019-04-08] MEDS: levoTHYROXINE 25mcg tablet PO SCH (08:00)
[2019-04-08] MEDS: digoxin 125mcg (0.125mg) tablet PO SCH (08:00)
[2019-04-08] MEDS: K and/or MAG REPLACEMENT MC SCH (08:00)
[2019-04-08] MEDS: gabapentin 300mg capsule PO SCH ×2 (08:00→19:41)
[2019-04-08] MEDS: allopurinol 100mg tablet PO SCH (08:00)
[2019-04-08] MEDS: vitamin D (cholecalciferol) 1,000 unit tablet PO SCH (08:00)
[2019-04-08] MEDS: calcium carbonate 500mg tablet PO SCH (08:00)
[2019-04-08 09:21] LABS: ABG BASE EXCESS 3.1 mmol/L (-2.0-3.0); ABG PCO2 (T) 38.9 mmHg (35.0-45.0); ABG PO2 (T) 69.7 mmHg (83-108); ALLEN'S TEST Positive; FCOHb 0.4 % (0.5-1.5); FLOW 4 L/min; FMetHb 0.1 % (0.3-1.12); FO2Hb 92.5 % (94-100); RESPIRATORY RATE (OBSERVED) 16 b/min; TOTAL HEMOGLOBIN 9.6 G/dl (12.0-16.0)
[2019-04-08 11:00] VITALS: BP 131/70
--- NOTE | 2019-04-08 13:14 | NUR ---
Paged Dr Villalta regarding pt and family wishes for pt to stay another night and look for rehab placement tomorrow PAGER ID: [phone] MESSAGE: Camille palmer [phone]. NICK Solis, P. 9241. FYI PT and family are requesting that patient stay another night and look for rehab placement tomorrow, 04/09. Thank you
--- NOTE | 2019-04-08 13:51 | NUR ---
patients daughter Guadalupe called ([phone] is her number), to let us know that [facility]. Their fax number is [phone], and the family would like case management to reach out to [facility] in the morning
[2019-04-08 15:00] VITALS: BP 113/51
--- NOTE | 2019-04-08 18:00 | NUR ---
Patient in room PCU 3011. I have received report from Camille ALVARADO and had the opportunity to ask questions and assume patient care.
--- NOTE | 2019-04-08 18:19 | NUR ---
Problems reprioritized. Patient report given, questions answered & plan of care reviewed with Michelle ALVARADO.
[2019-04-08 19:00] VITALS: BP 118/47
[2019-04-08] MEDS: diltiazem 30mg tablet PO SCH (19:41)
[2019-04-08] MEDS: pravastatin 40mg tablet PO SCH (20:27)
--- NOTE | 2019-04-08 21:29 | NUR ---
Sinus Rhythm PAGER ID: [phone] MESSAGE: [phone] Yuliya Solis: Patient has converted to Sinus Rhythm at 2126.
[2019-04-08 22:00] VITALS: BP 134/57
[2019-04-09 03:00] VITALS: BP 120/49
[2019-04-09] MEDS: HYDROcodone/acetaminophen 10/325mg tab PO PRN ×2 (03:25→09:27)
[2019-04-09 04:46] LABS: HEMATOCRIT 22.9 % (35.0-45.0); HEMOGLOBIN 8.1 g/dl (12.0-16.0); MEAN CORPUSCULAR HEMOGLOBIN 33.6 PG (27.0-31.0)
[2019-04-09 04:47] LABS: MEAN CORPUSCULAR HGB CONC 35.4 g/dL (33.0-36.5); MEAN CORPUSCULAR VOLUME 95.1 FL (78-98); MEAN PLATELET VOLUME 7.9 FL (7.4-10.4); RED CELL DISTRIBUTION WIDTH 25.5 % (11.5-14.5)
[2019-04-09 04:51] LABS: PLATELET COUNT 45 X10'3 (140-440)
--- NOTE | 2019-04-09 04:55 | NUR ---
Platelets 45 PAGER ID: [phone] MESSAGE: [phone] Yuliya Solis: Platelet count critical 45. Better than the day before, 43. Any new orders?
[2019-04-09 05:02] LABS: ALBUMIN 2.4 G/DL (3.4-5.0); ANION GAP 7 (8-16); BLOOD UREA NITROGEN 15 MG/DL (7-18); BUN/CREATININE RATIO 22.4 (6.6-38.0); CALCIUM 8.9 MG/DL (8.5-10.1); CHLORIDE 103 MMOL/L (99-107); CREATININE 0.67 MG/DL (0.40-0.90); GLUCOSE 105 MG/DL (70-104); MAGNESIUM 1.8 MG/DL (1.5-2.4); POTASSIUM 3.9 MMOL/L (3.5-5.1); SODIUM 140 MMOL/L (135-145); TOTAL CARBON DIOXIDE 30.3 MMOL/L (24-32); eGFR 83 ML/MIN
[2019-04-09 06:00] VITALS: BP 109/50
--- NOTE | 2019-04-09 06:38 | NUR ---
Patient in room PCU 3011. I have received report from JENNY Martinez and had the opportunity to ask questions and assume patient care.
--- NOTE | 2019-04-09 06:39 | NUR ---
Problems reprioritized. Patient report given, questions answered & plan of care reviewed with Ailyn ALVARADO.
[2019-04-09 07:30] LABS: TOTAL CELLS COUNTED 100
[2019-04-09 07:31] LABS: ANISOCYTOSIS 3+; HYPOCHROMASIA 1+; PLATELET ESTIMATE DECREASED; POLYCHROMASIA 1+
[2019-04-09] MEDS: levoTHYROXINE 25mcg tablet PO SCH (07:41)
[2019-04-09] MEDS: potassium chloride 8mEq ER tablet PO SCH (07:41)
[2019-04-09] MEDS: allopurinol 100mg tablet PO SCH (07:41)
[2019-04-09] MEDS: furosemide 40mg tablet PO SCH (07:42)
[2019-04-09] MEDS: diltiazem 30mg tablet PO SCH (07:42)
[2019-04-09] MEDS: gabapentin 300mg capsule PO SCH (07:42)
[2019-04-09] MEDS: digoxin 125mcg (0.125mg) tablet PO SCH (07:42)
[2019-04-09] MEDS: calcium carbonate 500mg tablet PO SCH (07:42)
[2019-04-09] MEDS: vitamin D (cholecalciferol) 1,000 unit tablet PO SCH (07:43)
[2019-04-09] MEDS: K and/or MAG REPLACEMENT MC SCH (08:00)
[2019-04-09] MEDS ORDERED: DILT30TA5 PO (10:15)
[2019-04-09 11:23] LABS: OCCULT BLOOD STOOL NEGATIVE (Neg)
--- NOTE | 2019-04-09 13:00 | NUR ---
pt discharged to home with all personal belongings. Discharge papers signed. 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 Medication was phoned to [facility] in [place]
== END 2019-04-09 13:20 | disposition home health service (06) | DRG 811 ==
LOC: ER 16:34 → ED HOLD 17:59 → PCU 3S 19:19
PROVIDERS: ADMIT Hospitalist; ATTEND Family Medicine
PROC: 30233N1 Transfusion of Nonautologous Red Blood Cells into Peripheral Vein, Percutaneous Approach (ICD-10-PCS; principal; 2019-04-06)
PROC: 0W993ZZ Drainage of Right Pleural Cavity, Percutaneous Approach (ICD-10-PCS; 2019-04-07)
PROC: BW241ZZ Computerized Tomography (CT Scan) of Chest and Abdomen using Low Osmolar Contrast (ICD-10-PCS; 2019-04-07)
DX: D46.9 Myelodysplastic syndrome, unspecified (principal); E43 Unspecified severe protein-calorie malnutrition; J96.21 Acute and chronic respiratory failure with hypoxia; I50.33 Acute on chronic diastolic (congestive) heart failure; J98.11 Atelectasis; Z68.1 Body mass index [BMI] 19.9 or less, adult; J91.8 Pleural effusion in other conditions classified elsewhere; I48.11 Longstanding persistent atrial fibrillation; G89.29 Other chronic pain; M54.9 Dorsalgia, unspecified; M85.80 Other specified disorders of bone density and structure, unspecified site; R00.1 Bradycardia, unspecified; I25.10 Atherosclerotic heart disease of native coronary artery without angina pectoris; R91.1 Solitary pulmonary nodule; Z83.3 Family history of diabetes mellitus; Z79.890 Hormone replacement therapy; Z80.49 Family history of malignant neoplasm of other genital organs; Z80.59 Family history of malignant neoplasm of other urinary tract organ; Z91.81 History of falling; Z95.1 Presence of aortocoronary bypass graft; Z99.81 Dependence on supplemental oxygen; Z88.8 Allergy status to other drugs, medicaments and biological substances; Z88.0 Allergy status to penicillin; Z82.49 Family history of ischemic heart disease and other diseases of the circulatory system; Z79.899 Other long term (current) drug therapy; Z79.82 Long term (current) use of aspirin; D63.8 Anemia in other chronic diseases classified elsewhere
CPT/HCPCS: 32555; 36415; 36600; 71045; 71260; 80048; 80053; 80162; 82272; 82803; 83735; 85018; 85025; 85027; 85610; 85730; 86870; 86885; 86900; 86901; 86902; 86905; 86920; 86922; 86945; 87081; 93005; 96374; 97110; 97112; 97116; 97161; 97530; 99285; G0378; J1940; P9016; Q9967